=== PATIENT | male | born 1960 | race Caucasian/White ===

== ENCOUNTER 2021-08-18 02:25 | Inpatient (IN) | payer OTHER ==
[2021-08-18] MEDS ORDERED: MORPHINE SULFATE 4 MG/ML SYRINGE IVP PRN (02:37)
[2021-08-18] MEDS ORDERED: NITROGLYCERIN-D5W PMX 50 MG in DEXTROSE/WATER 1 250ML.BAG IV ONE (02:38)
[2021-08-18] MEDS ORDERED: INSULIN ASPART (NovoLOG) 100 UNIT/ML VIAL SQ ONE (02:41)
[2021-08-18 02:42] LABS: Glucose,Whole Blood 331 mg/dL (75-99)
[2021-08-18] MEDS ORDERED: METOPROLOL TARTRATE 5 MG/5 ML VIAL IVP STA (02:51)
[2021-08-18] MEDS ORDERED: FUROSEMIDE 10 MG/ML 4 ML VIAL IV STA (02:51)
[2021-08-18 02:54] LABS: Basophils # (A) 0.2 k/uL (0-0.2); Basophils % (A) 1 %; Eosinophils # (A) 0.2 k/uL (0-0.7); Eosinophils % (A) 1 %; HCT 43.9 % (39.0-53.0); HGB 14.5 gm/dL (13.0-17.5); Hypochromasia Slight; Lymphocytes # (A) 3.4 k/uL (1.0-4.8); Lymphocytes % (A) 16 %; MCH 30.9 pg (25.0-35.0); MCV 93.8 fL (80.0-100.0); Mean Platelet Volume 9.4; Monocytes # (A) 1.2 k/uL (0-1.0); Monocytes % (A) 5 %; Neutrophils # (A) 16.1 k/uL (1.3-7.7); Neutrophils % (A) 74 %; Platelet Count 397 k/uL (150-450); RBC 4.68 m/uL (4.30-5.90); RDW 13.9 % (11.5-15.5); WBC 21.6 k/uL (3.8-10.6)
[2021-08-18] MEDS ORDERED: ATORVASTATIN 80 MG TAB PO STA (02:56)
[2021-08-18 03:05] LABS: Albumin 3.6 g/dL (3.5-5.0); Calcium 8.5 mg/dL (8.4-10.2); Partial Thromboplastin Time 22.7 sec (22.0-30.0); Potassium 4.6 mmol/L (3.5-5.1); Prothrombin Time 10.9 sec (9.0-12.0); Total Bilirubin 1.1 mg/dL (0.2-1.3); Total Protein 7.3 g/dL (6.3-8.2)
[2021-08-18] MEDS ORDERED: HEPARIN SODIUM 1,000 UN/ML (10ML VL) IVP STA (03:07)
[2021-08-18] MEDS ORDERED: IV FLUID CONTINUATION 1,000 ML IV ONE (03:30)
[2021-08-18] MEDS ORDERED: SODIUM CHLORIDE 0.9% 1,000 ML IV ONE (03:30)
[2021-08-18] MEDS ORDERED: LIDOCAINE 1% INJ 10MG/ML (30 ML VIAL-PF) SQ ONE (03:30)
[2021-08-18] MEDS ORDERED: fentaNYL (PF) 50 MCG/ML 2 ML AMP ONE (03:33)
[2021-08-18] MEDS ORDERED: fentaNYL (PF) 50 MCG/ML 2 ML AMP IV ONE (03:36)
--- NOTE | 2021-08-18 03:36 | P.CRDCN ---
History of Present Illness History of present illness: This is Dr. Rider dictating a consult on this patient The patient was interviewed and examined IMPRESSION / ASSESSMENT: Acute pulmonary edema, acute respiratory failure with an onset about an hour or so prior to arrival EKG shows ST elevation in inferior leads with ST depression V1 through V4 consistent with an inferior posterior CO Recurrent heartburn about a week back but no further discomfort thereafter Central obesity, increased BMI is 40 2 diabetes Hypertension PLAN: IV Lasix, IV nitroglycerin, IV metoprolol, aspirin and statins as well as IV morphine Nonrebreather mask Mechanical intubation Proceed with coronary angiography HPI Called by ER for an ST elevation CO" from [place] When I arrived in the ER I saw this gentleman on a nonrebreather mask sitting upright and struggling to breathe He was extremely short of breath very tachycardic hypertensive Initial blood pressure was 180/109 mmHg According to the he woke up and around 1:00 in the morning with sudden onset of shortness of breath no chest discomfort. Tachycardic tachypneic on a nonrebreather mask He has received sublingual nitroglycerin and IV nitroglycerin infusion I gave her 40 mg of IV Lasix and IV metoprolol This resulted in reduction blood pressure and heart rate and he was slowly able to lie down at 45 angle but still struggling to breathe The first 12-lead EKG upon arrival showed ST elevation in the inferior leads with sinus tachycardia After receiving IV Lasix and metoprolol are repeated his ECG and showed ST elevation in inferior leads with ST depression in V1 through V4 consistent with a large inferior posterior CO I discussed this with Dr. Morris also came down to see the patient He was taken to the lab intubated in the lab for intervention According to the patient and his he had recurrent heartburn a week back He saw his primary care physician He was treated with oral steroids He was scheduled for a stress test on August 23 at [facility] Over the last few days and especially yesterday he had absolutely no chest discomfort but he may very short of breath with exertion He experienced sudden onset of shortness of breath and presented with pulmonary edema this morning ROS: Acute onset shortness of breath No fever chills or rigors, no cough, phlegm or expectoration, no nausea, vomiting or diarrhea, no hematuria, dysuria, no musculoskeletal complaints, no strokes or seizures, no skin lesions. EXAMINATION: Blood pressure 186 105 mmHg, heart rate 130 140 beats a minute sinus tachycardia Reduced air entry bilaterally with some crackles at the bases later on once his breathing improved and his heart rate slowed down fine crackles were audible at the bases No obvious cardiac murmur REVIEW OF LABS, ECG & MEDICAL DATA Elevated white count but the patient is on steroids Type 2 diabetes, on metformin History of hypertension Obesity, BMI almost 40, Central obesity He takes metformin losartan but his could not remember any other medications Past Medical History Past Medical History: Diabetes Mellitus, Hyperlipidemia, Hypertension History of Any Multi-Drug Resistant Organisms: None Reported Past Surgical History: No Surgical Hx Reported Past Psychological History: No Psychological Hx Reported Smoking Status: Former smoker Past Alcohol Use History: Occasional Past Drug Use History: None Reported Medications and Allergies Allergies Allergy/AdvReac Type Severity Reaction Status Date / Time No Known Allergies Allergy Verified 08/18/21 02:32 Physical Exam Vitals: Vital Signs Temp Pulse Resp BP Pulse Ox 08/18/21 03:04 109 H 24 114/61 97 08/18/21 02:58 113 H 26 H 121/59 97 08/18/21 02:48 129 H 26 H 140/83 97 08/18/21 02:40 130 H 26 H 161/96 96 08/18/21 02:32 98.3 F 150 H 40 H 186/105 86 L Intake and Output 08/17/21 08/17/21 08/18/21 14:59 22:59 06:59 Other: Weight 131.542 kg Results 08/18/21 02:41 Coagulation 08/18/21 Range/Units 02:41 PT 10.9 (9.0-12.0) sec APTT 22.7 (22.0-30.0) sec CBC 08/18/21 Range/Units 02:41 WBC 21.6 H (3.8-10.6) k/uL RBC 4.68 (4.30-5.90) m/uL Hgb 14.5 (13.0-17.5) gm/dL Hct 43.9 (39.0-53.0) % Plt Count 397 (150-450) k/uL Current Medications Generic Name Dose Route Start Last Admin Trade Name Freq PRN Reason Stop Dose Admin Nitroglycerin/Dextrose 50 mg/ 250 mls @ 6 mls/hr 08/18/21 02:38 08/18/21 02:37 IV Solution IV 08/19/21 02:37 20 mcg/min .Q24H ONE 6 mls/hr Administration Protocol 20 MCG/MIN Morphine Sulfate 4 mg 08/18/21 02:37 08/18/21 02:37 Morphine Sulfate 4 Mg/Ml Syringe IVP 4 mg ONCE PRN Administration Pain Intake and Output 08/17/21 08/17/21 08/18/21 14:59 22:59 06:59 Other: Weight 131.542 kg Patient Weight 08/18/21 06:59 Weight 131.542 kg 08/18/21 02:41
[2021-08-18] MEDS ORDERED: HEPARIN SODIUM 1,000 UN/ML (10ML VL) ONE (03:38)
[2021-08-18] MEDS ORDERED: FUROSEMIDE 10 MG/ML 4 ML VIAL ONE (03:39)
--- NOTE | 2021-08-18 03:39 | XR ---
EXAMINATION TYPE: XR chest 1V portable DATE OF EXAM: 08/18/2021 COMPARISON: NONE HISTORY: Chest pain TECHNIQUE: Single view FINDINGS: There is pulmonary interstitial and airspace edema. There is no pleural effusion. There are no hilar masses. Mediastinum is normal. IMPRESSION: There is pulmonary edema that could relate to acute heart failure or RDS.
[2021-08-18] MEDS ORDERED: TIROFIBAN BOLUS 12.5MG/250 ML BAG IV ONE (03:40)
[2021-08-18] MEDS ORDERED: TIROFIBAN 12.5MG-250ML NS 250 ML IV ONE (03:45)
[2021-08-18] MEDS ORDERED: FUROSEMIDE 10 MG/ML 4 ML VIAL IV ONE (03:45)
[2021-08-18] MEDS ORDERED: NOREPINEPHRINE 4 MG in SODIUM CHLORIDE 0.9% 250 ML IV ONE (03:45)
[2021-08-18] MEDS ORDERED: IOPAMIDOL-370 125ML BTL INJ ONE (03:53)
[2021-08-18] MEDS: HEPARIN SODIUM 1,000 UN/ML (10ML VL) IV ONE ×3 (03:57→05:11)
[2021-08-18] MEDS ORDERED: HEPARIN SODIUM 1,000 UN/ML (10ML VL) IV ONE (04:51)
[2021-08-18 04:57] LABS: ABG Base Excess -4.2 mmol/L; ABG HCO3 24 mmol/L (21-25); ABG Oxygen Saturation 94.5 % (94-97); ABG PCO2 58 mmHg (35-45); ABG PH 7.22 (7.35-7.45); ABG PO2 90 mmHg (83-108); ABG TCO2 25 mmol/L (19-24)
[2021-08-18] MEDS ORDERED: TICAGRELOR 90 MG TAB ONE (05:20)
[2021-08-18] MEDS ORDERED: TICAGRELOR 90 MG TAB PO ONE (05:29)
[2021-08-18 05:31] LABS: Allen Test Performed? no
[2021-08-18] MEDS ORDERED: NITROGLYCERIN SL TABS 0.4 MG TAB SUBLINGUAL PRN (05:41)
[2021-08-18] MEDS ORDERED: MAG HYDROX/AL HYDROX/SIMETH 30 ML CUP PO PRN (05:41)
[2021-08-18] MEDS ORDERED: ZOLPIDEM 5 MG TAB PO PRN (05:41)
[2021-08-18] MEDS ORDERED: ATROPINE SULFATE 0.1 MG/ML 10ML SYRINGE IV PRN (05:41)
[2021-08-18] MEDS ORDERED: RX INFO: IV CONTRAST WAS GIVEN 1 EACH MISC MISCELLANE PRN (05:41)
[2021-08-18] MEDS ORDERED: IOPAMIDOL-370 100ML BTL INJ ONE (05:43)
[2021-08-18] MEDS ORDERED: SODIUM CHLORIDE 0.9% 1,000 ML in EMPTY BAG 1 BAG IV SCH (05:45)
--- NOTE | 2021-08-18 06:06 | P.PCN ---
Date of Procedure: 08/18/21 Operative Findings: CARDIAC CATHETERIZATION AND PERCUTANEOUS CORONARY INTERVENTION PERFORMING PHYSICIAN: Khalif Moncada MD, [facility] [place] PROCEDURE PERFORMED: 1. Successful placement of an Impella CP in the left ventricle 2. Stenting of the mid LAD using 3.0 x 23 mm Xience MATT and achieving SUSIE-3 flow 3. Stenting of OM1 of the LCx using 2.5 x 28 and 3.5 x 15 mm Xience MATT with SUSIE 0 flow 4. Aspiration thrombectomy from the OM1/LCX 5. Selective right and left coronary angiogram 6. Left heart catheterization 7. Selective left common femoral artery INDICATION: This is a 60-year-old gentleman with obesity diabetes and hypertension and dyslipidemia presented to the emergency department with shortness of breath/chest discomfort and EKG concerning for acute inferior ST patient myocardial infarction. In the light of that an emergent heart catheterization was advised COMPLICATION: None APPROACH: Right common femoral artery LEVEL OF SEDATION: Moderate with sedation length of 120 minutes PROCEDURE DESCRIPTION: After obtaining an informed consent, the patient was brought to cardiac dental laboratory manager. Local anesthesia was performed using lidocaine subcutaneously. The right common femoral artery was cannulated using Seldinger technique, the guidewire passed easily, following that we advanced a 6 Luxembourger sheath dilator assembly, the wire and dilator were removed and sheath was flushed. Selective right and left coronary angiogram using a 6-Luxembourger JR4 and JL catheters. Following that we did left heart catheterization using 6-Luxembourger pigtail catheter. The procedure was completed there was no complication. SELECTIVE CORONARY ANGIOGRAM: The right coronary artery: Is a large caliber vessel and a dominant vessel. The RCA has mild diffuse disease. Bifurcates distally into PDA and PLV branches and both appeared to have mild disease only. Left main: Is angiographically normal. Bifurcates into a CXR and LAD The left circumflex: Is a large caliber vessel nondominant vessel. The proximal left circumflex has mild disease only and gives rises into a large OM branch which is occluded. The circumflex continue after that as a moderate caliber vessel in the AV groove The left anterior descending artery: The very proximal LAD appeared to have mild disease only. The mid LAD by the bifurcation of a large diagonal branch has his a lesion appeared to be in the range of 70-80%. The ostial of the diagonal is not involved in the lesion. The LAD distally appears to have mild disease only. HEMODYNAMICS: The LVEDP was almost 40 mmHg without significant gradient across aortic valve PCI OF THE LCX AND LAD: Anticoagulation was initiated using heparin and ACT was monitored multiple times throughout the case. Extra doses of heparin given to achieve a therapeutic ACT I did engage the left main using an EBU 3.75 guiding catheter. An angiogram was performed through the guide. Attempting crossing the lesion in the first obtuse marginal branch of the left circumflex using a run-through wire was unsuccessful in spite of multiple attempts. At that point I left the a run-through wire in the OM1 and I was able to cross the lesion was difficulty using a whisper wire. The wire was advanced to the distal OM. Subsequently I did balloon angioplasty of OM1 using initially 3.0 mm balloon but because the balloon was sleeping multiple times proximally and distally I did balloon angioplasty using 2.5 mm balloon. The following angiogram showed some flow in the first obtuse marginal branch of the left circumflex but not SUSIE-3 flow. At that point I realized that OM1 has large thrombus burden. I did aspiration thrombectomy from OM1 and I was able to extract any thrombus but at the same time the aspiration t hrombectomy catheter did not cross the lesion in the OM1. Subsequently I decided to stent the OM1 and LCx. In OM1 I placed 2.5 x 28 mm stent and in the LCx I placed 3.5 x 15 mm stent. After that the area of overlap between the 2 stents was dilated using the stent balloon. Subsequently the following angiogram showed no flow in the left circumflex coronary artery. Aspiration thrombectomy was attempted again at that point with no extraction of any thrombus and the following angiogram showed no flow in the first obtuse marginal branch of the left circumflex and beside that the AV groove circumflex was shutdown probably because of distal embolization. At that point the patient's pressure dropped down and during the last angiogram I realized that there was no flow in the LAD. Further investigation and angiogram of the LAD revealed large thrombus burden involving the mid LAD by the bifurcation of a large diagonal branch. In the light of the pressure being low and we'll also flow in the LAD I decided to go ahead and place an Impella. At that point the left common femoral artery was cannulated using micropuncture technique the micropuncture wire passed easily then I placed a micropuncture sheath over the wire and I did selective left common femoral artery angiogram through the micropuncture sheath and that showed that the segment of the left common femoral artery where the entry site in appeared to be angiographically normal. Subsequently I placed an 0[address] I [address] place 6-Luxembourger sheath over the wire. Two Perclose where deployed at 2:00 and 11:00 o'clock. After that I upgraded my sheath into a 14-Luxembourger sheath over 035 stiff wire after I predilated using an 10-Luxembourger dilator and 12-Luxembourger dilator. The 14-Luxembourger sheath was advanced under fluoroscopy guidance and went to very small with. After that I did advance an 035 regular wire with a 5- Luxembourger pigtail catheter. I crossed the aortic valve and then I did exchange an 035 wire into a 018 wire and that the catheter was pulled out. Subsequently the Impella was advanced over the 018 wire to the LV under fluoroscopy guidance and then the wire was pulled out and then the Impella was turned on. We did perform an ACT and the patient was given additional heparin to maintain a therapeutic ACT. After that I did re-engaged the left main with a EBU guiding catheter. The wire in the left circumflex was in position. Subsequently I did wire the LAD using a run-through wire and the LAD wire was advanced to the distal portion. I did direct stenting of the lesion in the LAD using 3.0 x 23 mm stent where the stent was positioned under fluoroscopy guidance and deployed under 12 aramis. I did postdilated the stent using 3.25 mm NC balloon which was inflated under 14 aramis for 20 seconds. The following angiogram showed good flow in the left anterior descending artery which was SUSIE-3 flow. There was a thrombus in the ostial of the diagonal but the flow into diagonal was good. After that I decided to do aspiration thrombectomy again from the left circumflex coronary artery which I performed and I was able to extract large red thrombus. No good flow was achieved in the LCx/OM. At that point I decided to leave the patient on heparin as well as Aggrastat and reevaluate in the next 24 hour period I do believe that the major issue is an outflow issue. CONCLUSION: 1. Acute inferior posterior myocardial infarction. Stenting of the OM1/LCx was performed with SUSIE 0 flow 2. Acute vessel closure of the left anterior descending artery. Stenting of the LAD was performed with SUSIE 3 flow 3. Cardiogenic shock. Successful placement of Impella in the LV was performed 4. Extremely elevated left-sided filling pressure related to cardiogenic shock POSTPROCEDURE MANAGEMENT: The patient to be reevaluated with an angiogram in the next 24 hour period he would be in the intensive care unit. He would be on heparin as well as Ag grastat. Aviation Safety Equipment Technician would be consulted. Continue hemodynamic monitoring
[2021-08-18 06:35] LABS: Glucose,Whole Blood 230 mg/dL (75-99)
[2021-08-18] MEDS ORDERED: HEPARIN SOD,PORK IN 0.45% NACL 25,000 UNIT in 0.45% NACL 1 250ML.BAG IV SCH (07:30)
--- NOTE | 2021-08-18 08:26 | XR ---
EXAMINATION TYPE: XR chest 1V portable DATE OF EXAM: 08/18/2021 8:13 AM COMPARISON: Multiple radiographs, with the most recent on 08/18/2021 TECHNIQUE: XR chest 1V portable Frontal view of the chest. CLINICAL INDICATION:Male, 60 years old with history of RESP FAILURE; FINDINGS: Underpenetration and motion limits evaluation. Lungs/Pleura: Similar multifocal airspace opacities. No evidence of pneumothorax or pleural effusion. Pulmonary vascularity: Unremarkable. Heart/mediastinum: Cardiomediastinal silhouette is enlarged and stable. Musculoskeletal: No acute osseous pathology. Other findings: None Lines/Tubes: Endotracheal tube with distal tip 5.1 cm above the eloy Additional linear device with distal tip projecting over the heart after looping more superiorly. Its difficult to see this less given motion and underpenetration. IMPRESSION: 1. Limited evaluation secondary to motion and underpenetration. 2. Interval placement of endotracheal tube with tip above the eloy. 3. Similar multifocal airspace opacities.
[2021-08-18 08:37] LABS: ABG Base Excess -5.7 mmol/L; ABG HCO3 20 mmol/L (21-25); ABG Oxygen Saturation 99.7 % (94-97); ABG PCO2 39 mmHg (35-45); ABG PH 7.33 (7.35-7.45); ABG PO2 373 mmHg (83-108); ABG TCO2 21 mmol/L (19-24)
[2021-08-18 08:58] LABS: Glucose,Whole Blood 236 mg/dL (75-99)
[2021-08-18] MEDS: NOREPINEPHRINE 4 MG in SODIUM CHLORIDE 0.9% 250 ML IV SCH ×8 (09:18→23:57)
[2021-08-18] MEDS ORDERED: CISATRACURIUM 2 MG/ML 5 ML VIAL IV ONE ×2 (09:34→09:46)
[2021-08-18] MEDS: TIROFIBAN 12.5MG-250ML NS 250 ML IV SCH ×2 (09:50→18:58)
[2021-08-18] MEDS: ASPIRIN 81 MG PO SCH (09:50)
[2021-08-18] MEDS: CHLORHEXIDINE GLUCONATE 15 ML CUP MUCOUS MEM SCH ×2 (09:50→20:26)
--- NOTE | 2021-08-18 10:25 | XR ---
EXAMINATION TYPE: XR chest 1V portable DATE OF EXAM: 08/18/2021 10:05 AM COMPARISON: Same day radiograph TECHNIQUE: XR chest 1V portable Frontal view of the chest. 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 No evidence of pneumothorax or pleural effusion. Pulmonary vascularity: Pulmonary vascular congestion. Heart/mediastinum: Cardiomediastinal silhouette is enlarged and stable. Musculoskeletal: No acute osseous pathology. Lines/Tubes: Endotracheal tube with distal tip at the thoracic inlet. Nasogastric tube with its distal tip and side-port projecting under the diaphragm. Left central venous catheter with distal tip at the superior vena cava brachiocephalic vein junction. Additional heart leads projecting over the right ventricle and middle heart near the pulmonary trunk/ right atrium. IMPRESSION: 1. Interval placement of left internal jugular central venous catheter with tip in appropriate posit ion. No evidence of pneumothorax. 2. Remainder of exam is unchanged with multifocal airspace opacities.
[2021-08-18] MEDS: HEPARIN SOD,PORK IN 0.45% NACL 25,000 UNIT in 0.45% NACL 1 250ML.BAG IV SCH (11:00)
[2021-08-18] MEDS: HEPARIN SODIUM,PORCINE 12,500 UNIT in DEXTROSE 5% IN WATER 500 ML IV SCH ×2 (11:00)
--- NOTE | 2021-08-18 11:01 | PCN ---
PROCEDURE NOTE PULMONARY/CRITICAL CARE PROCEDURE NOTE: Placement of left internal jugular triple-lumen catheter. PREOPERATIVE DIAGNOSIS: Administration of fluids and pressors. POSTOPERATIVE DIAGNOSIS: Administration of fluids and pressors. OPERATORS: 1. Dr. Szymanski. 2. Dr. Shaikh. PROCEDURE DESCRIPTION: A time-out was completed verifying correct patient, procedure, site, positioning, and implant(s) or special equipment if applicable. The patient was placed in a dependent position appropriate for triple-lumen catheter placement based on the vein to be cannulated. The patient's left neck was prepped and draped in sterile fashion. 1% Lidocaine was used to anesthetize the surrounding skin area. A triple lumen 9F Cordis catheter was introduced into the left internal jugular vein from the posterior approach using Seldinger technique. The catheter was threaded smoothly over the guidewire and appropriate blood return was obtained. There was good blood return from all three ports. Each lumen of the catheter was evacuated of air and flushed with sterile saline. The catheter was then sutured in place to the skin and a sterile dressing applied by the nurse. Perfusion to the extremity distal to the point of catheter insertion was checked and found to be adequate. A chest x-ray was ordered to check placement and rule out pneumothorax. The patient the tolerated procedure very well. There was no immediate complication. MMODL / IJN: [id number] /
--- NOTE | 2021-08-18 11:07 | P.HPIM ---
History of Present Illness H&P Date: 08/18/21 Chief Complaint: STEMI 60-year-old man with history of hypertension, obesity, diabetes type 2, hyperlipidemia presented as a transfer from [place] for STEMI. Patient was int ubated and sedated at the time of my evaluation, history obtained from chart review. Patient appeared to have inferior ST elevations and 2, 3, aVF, as well as lateral leads, V5, V6 with reciprocal changes in the lateral leads 1, aVL, as well as septal leads V1, V2, anterior leads V3. Chest x-ray demonstrated multifocal airspace opacities consistent with volume overload. By the time my evaluation, patient had been taken to the [facility] with Impala placement as well as stenting to the OM1 with 2 stents, and LAD with 1 stent. Upon my evaluation, patient is afebrile, 100/73 with 0.1 of levo fed and 3 L output Impala running at power 9. Heart rate is 60, 95% on ventilator FiO2 40%, before meals 500, PEEP 5. CBC significant for white blood cell count 21.6, otherwise unremarkable. Chemistries remarkable for mild hyponatremia to 133, mild acidosis to CO2 of 19, BUN/creatinine is 16/1.24. Liver function tests are significant for AST/ALT/alkaline phosphatase of 71/51/132. Initial troponin was 5.44, BNP was 1150. ABG status post ventilator shows a pH of 7.33, pO2 of 373, pCO2 of 39. Chest x-ray and EKG are reviewed above. Review of systems could not be obtained due to patient's clinical condition Gen: Intubated, sedated HEENT: normocephalic, atraumatic,moist mucous membranes Resp: Intubated, vent before meals 500, FiO2 40%, PEEP 5 CVS: good distal perfusion x 4, tachycardic GI: soft, NTTP, ND : no SPT, no CVAT, hu catheter is present MSK: + pitting edema, no clubbing Labs and imaging are reviewed above Assessment/plan: STEMI -Admit to inpatient, ICU, telemetry -Aspirin, brillinta, statin -Currently on Aggrastat -Impala per cardiology -Levo fed as needed -Cardiology, pulmonary consultation appreciated -Nitro drip as needed -Morphine as needed Hypertension Hyperlipidemia Diabetes type 2 Obesity -Home medications reviewed and reconciled Pt is Full Code Past Medical History Past Medical History: Diabetes Mellitus, Hyperlipidemia, Hypertension History of Any Multi-Drug Resistant Organisms: None Reported Past Surgical History: No Surgical Hx Reported Past Psychological History: No Psychological Hx Reported Smoking Status: Former smoker Past Alcohol Use History: Occasional Past Drug Use History: None Reported Medications and Allergies Allergies Allergy/AdvReac Type Severity Reaction Status Date / Time No Known Allergies Allergy Verified 08/18/21 02:32 Physical Exam Osteopathic Statement: *. No significant issues noted on an osteopathic structural exam other than those noted in the History and Physical/Consult. Vitals: Vital Signs Temp Pulse Resp BP Pulse Ox 08/18/21 09:45 60 0 L 100/73 95 08/18/21 09:30 55 L 0 L 114/80 96 08/18/21 09:15 61 0 L 120/84 97 08/18/21 09:00 63 0 L 113/65 97 08/18/21 08:45 62 111/89 98 08/18/21 08:30 62 22 104/81 97 08/18/21 08:15 63 22 99/77 97 08/18/21 08:00 98.5 F 63 22 103/84 97 08/18/21 07:45 62 20 100/88 97 08/18/21 07:30 63 23 102/73 97 08/18/21 07:15 64 22 89/74 96 08/18/21 07:00 64 26 H 114/84 97 08/18/21 06:45 62 24 100/55 96 08/18/21 06:31 64 24 98 08/18/21 03:09 116 H 18 121/61 98 08/18/21 03:04 109 H 24 114/61 97 08/18/21 02:58 113 H 26 H 121/59 97 08/18/21 02:50 42 H 08/18/21 02:48 129 H 26 H 140/83 97 08/18/21 02:40 130 H 26 H 161/96 96 08/18/21 02:32 98.3 F 150 H 40 H 186/105 86 L Intake and Output 08/17/21 08/18/21 08/18/21 22:59 06:59 14:59 Intake Total 1053.9 Balance 1053.9 Intake: IV 1030 Intake, IV Titration 23.9 Amount Nitroglycerin-D5w Pmx 50 23.9 mg In Dextrose/Water 1 250ml.bag @ 20 MCG/MIN 6 mls/hr IV .Q24H ONE Rx#: [id number] Other: Voiding Method Indwelling Catheter Weight 131.542 kg ABP, PAP, CO, CI - Last 8 Hours Arterial Blood Pressure 125/84 Arterial Blood Pressure 64/56 Arterial Blood Pressure 121/85 Arterial Blood Pressure 127/92 Arterial Blood Pressure 124/86 Arterial Blood Pressure 118/90 Arterial Blood Pressure 112/86 Arterial Blood Pressure 104/79 Arterial Blood Pressure 101/81 Arterial Blood Pressure 103/82 Arterial Blood Pressure 108/85 Arterial Blood Pressure 106/80 Arterial Blood Pressure 66/57 Results CBC & Chem 7: 08/18/21 02:41 08/18/21 02:41 Labs: Abnormal Lab Results - Last 24 Hours (Table) 08/18/21 08/18/21 08/18/21 Range/Units 02:40 02:41 02:41 WBC 21.6 H (3.8-10.6) k/uL Neutrophils # 16.1 H (1.3-7.7) k/uL Monocytes # 1.2 H (0-1.0) k/uL ABG pH (7.35-7.45) ABG pCO2 (35-45) mmHg ABG pO2 (83-108) mmHg ABG HCO3 (21-25) mmol/L ABG Total CO2 (19-24) mmol/L ABG O2 Saturation (94-97) % Sodium 133 L (137-145) mmol/L Carbon Dioxide 19 L (22-30) mmol/L Glucose 334 H (74-99) mg/dL POC Glucose (mg/dL) 331 H (75-99) mg/dL AST 71 H (17-59) U/L ALT 51 H (4-49) U/L Alkaline Phosphatase 132 H (38-126) U/L Troponin I (0.000-0.034) ng/mL 08/18/21 08/18/21 08/18/21 Range/Units 02:41 04:48 06:33 WBC (3.8-10.6) k/uL Neutrophils # (1.3-7.7) k/uL Monocytes # (0-1.0) k/uL ABG pH 7.22 L (7.35-7.45) ABG pCO2 58 H (35-45) mmHg ABG pO2 (83-108) mmHg ABG HCO3 (21-25) mmol/L ABG Total CO2 25 H (19-24) mmol/L ABG O2 Saturation (94-97) % Sodium (137-145) mmol/L Carbon Dioxide (22-30) mmol/L Glucose (74-99) mg/dL POC Glucose (mg/dL) 230 H (75-99) mg/dL AST (17-59) U/L ALT (4-49) U/L Alkaline Phosphatase (38-126) U/L Troponin I 5.440 H* (0.000-0.034) ng/mL 08/18/21 08/18/21 Range/Units 08:31 08:37 WBC (3.8-10.6) k/uL Neutrophils # (1.3-7.7) k/uL Monocytes # (0-1.0) k/uL ABG pH 7.33 L (7.35-7.45) ABG pCO2 (35-45) mmHg ABG pO2 373 H (83-108) mmHg ABG HCO3 20 L (21-25) mmol/L ABG Total CO2 (19-24) mmol/L ABG O2 Saturation 99.7 H (94-97) % Sodium (137-145) mmol/L Carbon Dioxide (22-30) mmol/L Glucose (74-99) mg/dL POC Glucose (mg/dL) 236 H (75-99) mg/dL AST (17-59) U/L ALT (4-49) U/L Alkaline Phosphatase (38-126) U/L Troponin I (0.000-0.034) ng/mL Thrombosis Risk Factor Assmnt - Choose All That Apply Each Factor Represents 1 point: Acute [place] Each Risk Factor Represents 2 Points: Age 61-74 years, Patient confined to bed Thrombosis Risk Factor Assessment Total Risk Factor Score: 5 Thrombosis Risk Factor Assessment Level: High Risk
[2021-08-18 11:11] LABS: Basophils # (A) 0.1 k/uL (0-0.2); Basophils % (A) 0 %; Eosinophils % (A) 0 %; HCT 42.9 % (39.0-53.0); HGB 14.3 gm/dL (13.0-17.5); Lymphocytes # (A) 1.2 k/uL (1.0-4.8); Lymphocytes % (A) 4 %; MCH 30.7 pg (25.0-35.0); MCHC 33.5 g/dL (31.0-37.0); MCV 91.7 fL (80.0-100.0); Mean Platelet Volume 8.8; Monocytes # (A) 0.9 k/uL (0-1.0); Monocytes % (A) 3 %; Neutrophils # (A) 25.1 k/uL (1.3-7.7); Neutrophils % (A) 91 %; Platelet Count 376 k/uL (150-450); RBC 4.68 m/uL (4.30-5.90); WBC 27.5 k/uL (3.8-10.6)
[2021-08-18 11:49] LABS: ALT 73 U/L (4-49); AST 211 U/L (17-59); African American GFR (CKD) 75 (>60 ml/min/1.73 sqM); Albumin 3.4 g/dL (3.5-5.0); Alkaline Phosphatase 84 U/L (38-126); Anion Gap 8 mmol/L; Blood Urea Nitrogen 20 mg/dL (9-20); Calcium 7.7 mg/dL (8.4-10.2); Carbon Dioxide 19 mmol/L (22-30); Chloride 108 mmol/L (98-107); Glucose 210 mg/dL (74-99); Magnesium 1.8 mg/dL (1.6-2.3); Non-African American GFR(CKD) 64 (>60 ml/min/1.73 sqM); Sodium 135 mmol/L (137-145); Total Bilirubin 2.5 mg/dL (0.2-1.3); Total Protein 7.4 g/dL (6.3-8.2)
[2021-08-18 12:02] LABS: Potassium 5.4 mmol/L (3.5-5.1)
[2021-08-18 12:11] LABS: Toxic Granulation Present
[2021-08-18] MEDS: FUROSEMIDE 10 MG/ML 4 ML VIAL IV SCH ×2 (12:17→20:26)
--- NOTE | 2021-08-18 12:21 | P.PN ---
Subjective Progress Note Date: 08/18/21 This is Francis Rasmussen NP, I'm dictating on behalf of Dr. Rider's H&P and A&P. Patient was interviewed and examined. Patient is a 60-year-old male who was brought to the hospital yesterday with a STEMI. Patient underwent cardiac catheterization, where stenting was completed to the mid LAD, OM1, aspiration thrombectomy from the OM1/LCx, successful placement of an Impella CP in the left ventricle. Patient was intubated prior to the procedure, remains intubated at this time. Patient remains on heparin, nitro, norepinephrine, propofol, and tirofiban. Secondary to cardiogenic shock and extremely elevated left-sided filling pressures, will start patient on Lasix 40 mg IV push twice a day. GENERAL: Intubated, sedated. NECK: Supple without JVD or thyromegaly. LUNGS: Breath sounds clear to auscultation bilaterally. Respiration equal and unlabored. No wheezes, rales or rhonchi. HEART: Regular rate and rhythm without murmurs, rubs or gallops. S1 and S2 heard. EXTREMITIES: No edema. No clubbing or cyanosis. Peripheral pulses intact and strong. VITALS: Temp 98.5, pulse 63, respirations 22, blood pressure 103/84, O2 saturation 97% on mechanical ventilation TELEMETRY: Normal sinus rhythm LABS: White count 27.5, hemoglobin 14.3, platelets 376, sodium 135, potassium 5.4, B1 20, creatinine 1.21, calcium 7.7, magnesium 1.8 IMPRESSION: Status post cardiac catheterization with stenting to mid LAD, OM1, LCx, with successful placement of Impella Inferior/posterior HI, status post cath Anterior HI, status post cath PLAN: Continue IV Lasix 40 mg twice a day Continue to evaluate left ventricular status May need further catheterization in the near future for further stenting or aspiration thrombectomy Prognosis is guarded Further recommendations based on patient's clinical course Objective - Vital Signs Vital signs: Vital Signs Temp 98.5 F 08/18/21 08:00 Pulse 60 08/18/21 11:00 Resp 22 08/18/21 11:00 BP 108/90 08/18/21 11:00 Pulse Ox 97 08/18/21 11:00 Intake & Output 08/17/21 08/18/21 08/18/21 18:59 06:59 18:59 Intake Total 1053.9 375 Output Total 375 Balance 1053.9 0 Weight 131.542 kg Intake: IV 1030 375 Sodium Chloride 0.9% 1, 375 000 ml In Empty Bag 1 bag @ 75 mls/hr IV .[id number] [facility] Rx#:[id number] Intake, IV Titration 23.9 Amount Nitroglycerin-D5w Pmx 50 23.9 mg In Dextrose/Water 1 250ml.bag @ 20 MCG/MIN 6 mls/hr IV .Q24H [facility] Rx#: [id number] Output: Urine 375 Other: Voiding Method Indwelling Catheter ABP, PAP, CO, CI - Last Documented Arterial Blood Pressure 104/77 - Labs CBC & Chem 7: 08/18/21 11:07 08/18/21 11:37 Labs: Abnormal Lab Results - Last 24 Hours (Table) 08/18/21 08/18/21 08/18/21 Range/Units 02:40 02:41 02:41 WBC 21.6 H (3.8-10.6) k/uL Neutrophils # 16.1 H (1.3-7.7) k/uL Monocytes # 1.2 H (0-1.0) k/uL Fibrinogen (200-500) mg/dL ABG pH (7.35-7.45) ABG pCO2 (35-45) mmHg ABG pO2 (83-108) mmHg ABG HCO3 (21-25) mmol/L ABG Total CO2 (19-24) mmol/L ABG O2 Saturation (94-97) % Sodium 133 L (137-145) mmol/L Potassium (3.5-5.1) mmol/L Chloride (98-107) mmol/L Carbon Dioxide 19 L (22-30) mmol/L Glucose 334 H (74-99) mg/dL POC Glucose (mg/dL) 331 H (75-99) mg/dL Calcium (8.4-10.2) mg/dL Total Bilirubin (0.2-1.3) mg/dL AST 71 H (17-59) U/L ALT 51 H (4-49) U/L Alkaline Phosphatase 132 H (38-126) U/L Troponin I (0.000-0.034) ng/mL Albumin (3.5-5.0) g/dL 08/18/21 08/18/21 08/18/21 Range/Units 02:41 04:48 06:33 WBC (3.8-10.6) k/uL Neutrophils # (1.3-7.7) k/uL Monocytes # (0-1.0) k/uL Fibrinogen (200-500) mg/dL ABG pH 7.22 L (7.35-7.45) ABG pCO2 58 H (35-45) mmHg ABG pO2 (83-108) mmHg ABG HCO3 (21-25) mmol/L ABG Total CO2 25 H (19-24) mmol/L ABG O2 Saturation (94-97) % Sodium (137-145) mmol/L Potassium (3.5-5.1) mmol/L Chloride (98-107) mmol/L Carbon Dioxide (22-30) mmol/L Glucose (74-99) mg/dL POC Glucose (mg/dL) 230 H (75-99) mg/dL Calcium (8.4-10.2) mg/dL Total Bilirubin (0.2-1.3) mg/dL AST (17-59) U/L ALT (4-49) U/L Alkaline Phosphatase (38-126) U/L Troponin I 5.440 H* (0.000-0.034) ng/mL Albumin (3.5-5.0) g/dL 08/18/21 08/18/21 08/18/21 Range/Units 08:31 08:37 11:07 WBC 27.5 H (3.8-10.6) k/uL Neutrophils # (1.3-7.7) k/uL Monocytes # (0-1.0) k/uL Fibrinogen (200-500) mg/dL ABG pH 7.33 L (7.35-7.45) ABG pCO2 (35-45) mmHg ABG pO2 373 H (83-108) mmHg ABG HCO3 20 L (21-25) mmol/L ABG Total CO2 (19-24) mmol/L ABG O2 Saturation 99.7 H (94-97) % Sodium (137-145) mmol/L Potassium (3.5-5.1) mmol/L Chloride (98-107) mmol/L Carbon Dioxide (22-30) mmol/L Glucose (74-99) mg/dL POC Glucose (mg/dL) 236 H (75-99) mg/dL Calcium (8.4-10.2) mg/dL Total Bilirubin (0.2-1.3) mg/dL AST (17-59) U/L ALT (4-49) U/L Alkaline Phosphatase (38-126) U/L Troponin I (0.000-0.034) ng/mL Albumin (3.5-5.0) g/dL 08/18/21 08/18/21 Range/Units 11:07 11:37 WBC (3.8-10.6) k/uL Neutrophils # (1.3-7.7) k/uL Monocytes # (0-1.0) k/uL Fibrinogen 532 H (200-500) mg/dL ABG pH (7.35-7.45) ABG pCO2 (35-45) mmHg ABG pO2 (83-108) mmHg ABG HCO3 (21-25) mmol/L ABG Total CO2 (19-24) mmol/L ABG O2 Saturation (94-97) % Sodium 135 L (137-145) mmol/L Potassium 5.4 H (3.5-5.1) mmol/L Chloride 108 H (98-107) mmol/L Carbon Dioxide 19 L (22-30) mmol/L Glucose 210 H (74-99) mg/dL POC Glucose (mg/dL) (75-99) mg/dL Calcium 7.7 L (8.4-10.2) mg/dL Total Bilirubin 2.5 H (0.2-1.3) mg/dL AST 211 H (17-59) U/L ALT 73 H (4-49) U/L Alkaline Phosphatase (38-126) U/L Troponin I (0.000-0.034) ng/mL Albumin 3.4 L (3.5-5.0) g/dL
[2021-08-18] MEDS: INSULIN ASPART (NovoLOG) 100 UNIT/ML VIAL SQ SCH ×2 (12:31→17:36)
--- NOTE | 2021-08-18 12:40 | P.CNPUL ---
History of Present Illness Consult date: 08/18/21 Requesting physician: Lamont Kelley Reason for consult: other (Mechanical ventilator/Critical care management) Chief complaint: ST segment elevation myocardial infarction History of present illness: This is a 60-year-old male patient with a history of diabetes mellitus, hyperlipidemia, hypertension, obesity, possible medication noncompliance was brought in to the emergency room via EMS for an acute ST segment elevation myocardial infarction, acute pulmonary edema with acute respiratory failure. Apparently he had been having complaints of recurrent heartburn for 1 week prior, seen his primary care provider was treated with oral medications and scheduled for a stress test August 23. He was intubated in the emergency room for acute hypoxemic respiratory failure. He was taken urgently to the cardiac slab polisher and had stents placed to the mid LAD, OM 12, aspiration thrombectomy of the OM1. Impella was placed. He was admitted to the intensive care unit where he is seen today in consultation. He remains intubated on the mechanical ventilator. Currently on assist control mode with a rate of 22, tidal volume 500, FiO2 60% and a PEEP of 5. Morning blood gases revealed a PaO2 of 373, P CO2 of 38 and a pH of 7.33. This was on 90% FiO2 and subsequently decreased to 40% FiO2. He is sedated on propofol at 45 mcg/kg/m. Heparin drip per weight- based protocol. Aggrastat at 0.15 mcg/kg/m. He is on norepinephrine at 12 mcg/m. Normal saline at 75 ML's per hour. White count 27.5. Hemoglobin 14.3. Platelets 373. Fibrinogen 532. Sodium 135. Potassium 5.4. Chloride 108. Bicarb 19. BUN 20. Creatinine 1.21. Glucose 210. TSH 0.601. Cortisol level XXII. A ST to 11. ALT 73. Troponin 5.44. ProBNP 1150. He's been initiated on Lasix 40 mg IV every 12 hours. Brilinta, aspirin, statins. Chest x-ray reveals multifocal airspace opacities, pulmonary vascular congestion. Echocardiogram pending. Review of Systems ROS unobtainable: due to endotracheal tube Past Medical History Past Medical History: Diabetes Mellitus, Hyperlipidemia, Hypertension History of Any Multi-Drug Resistant Organisms: None Reported Past Surgical History: No Surgical Hx Reported Past Psychological History: No Psychological Hx Reported Smoking Status: Former smoker Past Alcohol Use History: Occasional Past Drug Use History: None Reported Medications and Allergies Allergies Allergy/AdvReac Type Severity Reaction Status Date / Time No Known Allergies Allergy Verified 08/18/21 02:32 Physical Exam Vitals: Vital Signs Temp Pulse Resp BP Pulse Ox 08/18/21 12:15 57 L 22 122/90 98 08/18/21 12:00 57 L 22 120/105 98 08/18/21 11:45 58 L 22 120/105 98 08/18/21 11:30 58 L 22 118/94 98 08/18/21 11:15 60 22 122/91 98 08/18/21 11:00 60 22 108/90 97 08/18/21 10:45 58 L 22 113/96 97 08/18/21 10:30 59 L 22 117/97 97 08/18/21 10:15 58 L 22 116/95 97 08/18/21 10:00 59 L 22 108/91 97 08/18/21 09:45 60 22 100/73 95 08/18/21 09:30 55 L 22 114/80 96 08/18/21 09:15 61 22 120/84 97 08/18/21 09:00 63 22 113/65 97 08/18/21 08:45 62 22 111/89 98 08/18/21 08:30 62 22 104/81 97 08/18/21 08:15 63 22 99/77 97 08/18/21 08:00 98.5 F 63 22 103/84 97 08/18/21 07:45 62 20 100/88 97 08/18/21 07:30 63 23 102/73 97 08/18/21 07:15 64 22 89/74 96 08/18/21 07:00 64 26 H 114/84 97 08/18/21 06:45 62 24 100/55 96 08/18/21 06:31 64 24 98 08/18/21 03:09 116 H 18 121/61 98 08/18/21 03:04 109 H 24 114/61 97 08/18/21 02:58 113 H 26 H 121/59 97 08/18/21 02:50 42 H 08/18/21 02:48 129 H 26 H 140/83 97 08/18/21 02:40 130 H 26 H 161/96 96 08/18/21 02:32 98.3 F 150 H 40 H 186/105 86 L Intake and Output 08/17/21 08/18/21 08/18/21 22:59 06:59 14:59 Intake Total 1053.9 500.295 Output Total 375 Balance 1053.9 125.295 Intake: IV 1030 375 Sodium Chloride 0.9% 1, 375 000 ml In Empty Bag 1 bag @ 75 mls/hr IV .[id number] [facility] Rx#:[id number] Intake, IV Titration 23.9 125.295 Amount Nitroglycerin-D5w Pmx 50 23.9 mg In Dextrose/Water 1 250ml.bag @ 20 MCG/MIN 6 mls/hr IV .Q24H [facility] Rx#: [id number] Norepinephrine 4 mg In 125.295 Sodium Chloride 0.9% 250 ml @ 0.24 MCG/KG/MIN 120. 282 mls/hr IV .Q2H7M [facility] Rx#:[id number] Output: Urine 375 Other: Voiding Method Indwelling Catheter Weight 131.542 kg ABP, PAP, CO, CI - Last 8 Hours Arterial Blood Pressure 112/79 Arterial Blood Pressure 113/78 Arterial Blood Pressure 117/79 Arterial Blood Pressure 120/79 Arterial Blood Pressure 117/79 Arterial Blood Pressure 104/77 Arterial Blood Pressure 109/74 Arterial Blood Pressure 112/74 Arterial Blood Pressure 113/77 Arterial Blood Pressure 102/76 Arterial Blood Pressure 125/84 Arterial Blood Pressure 64/56 Arterial Blood Pressure 121/85 Arterial Blood Pressure 127/92 Arterial Blood Pressure 124/86 Arterial Blood Pressure 118/90 Arterial Blood Pressure 112/86 Arterial Blood Pressure 104/79 Arterial Blood Pressure 101/81 Arterial Blood Pressure 103/82 Arterial Blood Pressure 108/85 Arterial Blood Pressure 106/80 Arterial Blood Pressure 66/57 GENERAL EXAM: Intubated, sedated 60-year-old obese male patient. HEAD: Normocephalic. EYES: Normal reaction of pupils, equal size. NOSE: Clear with pink turbinates. THROAT: Oral endotracheal and gastric tube secured in place No erythema or exudates. NECK: No masses, no JVD. CHEST: No chest wall deformity. LUNGS: Equal air entry with bilateral coarse crackles. CVS: S1 and S2 normal with no audible murmur, regular rhythm. Bradycardic ABDOMEN: No hepatosplenomegaly, normal bowel sounds, no guarding or rigidity. SPINE: No scoliosis or deformity SKIN: No rashes CENTRAL NERVOUS SYSTEM: No focal deficits, tone is normal in all 4 extremities. EXTREMITIES: Impella in place to the groin. There is no peripheral edema. No clubbing, no cyanosis. Peripheral pulses are intact. Results - Laboratory Findings CBC and BMP: 08/18/21 11:07 08/18/21 11:37 ABG ABG pH 7.33 (7.35-7.45) L 08/18/21 08:31 ABG pCO2 39 mmHg (35-45) 08/18/21 08:31 ABG pO2 373 mmHg (83-108) H 08/18/21 08:31 ABG O2 Saturation 99.7 % (94-97) H 08/18/21 08:31 PT/INR, D-dimer PT 10.9 sec (9.0-12.0) 08/18/21 02:41 INR 1.0 (<1.2) 08/18/21 02:41 Abnormal lab findings: Abnormal Labs 08/18/21 08/18/21 08/18/21 02:40 02:41 02:41 WBC 21.6 H Neutrophils # 16.1 H Monocytes # 1.2 H Fibrinogen ABG pH ABG pCO2 ABG pO2 ABG HCO3 ABG Total CO2 ABG O2 Saturation Sodium 133 L Potassium Chloride Carbon Dioxide 19 L Glucose 334 H POC Glucose (mg/dL) 331 H Calcium Total Bilirubin AST 71 H ALT 51 H Alkaline Phosphatase 132 H Troponin I Albumin 08/18/21 08/18/21 08/18/21 02:41 04:48 06:33 WBC Neutrophils # Monocytes # Fibrinogen ABG pH 7.22 L ABG pCO2 58 H ABG pO2 ABG HCO3 ABG Total CO2 25 H ABG O2 Saturation Sodium Potassium Chloride Carbon Dioxide Glucose POC Glucose (mg/dL) 230 H Calcium Total Bilirubin AST ALT Alkaline Phosphatase Troponin I 5.440 H* Albumin 08/18/21 08/18/21 08/18/21 08:31 08:37 11:07 WBC 27.5 H Neutrophils # 25.1 H Monocytes # Fibrinogen ABG pH 7.33 L ABG pCO2 ABG pO2 373 H ABG HCO3 20 L ABG Total CO2 ABG O2 Saturation 99.7 H Sodium Potassium Chloride Carbon Dioxide Glucose POC Glucose (mg/dL) 236 H Calcium Total Bilirubin AST ALT Alkaline Phosphatase Troponin I Albumin 08/18/21 08/18/21 11:07 11:37 WBC Neutrophils # Monocytes # Fibrinogen 532 H ABG pH ABG pCO2 ABG pO2 ABG HCO3 ABG Total CO2 ABG O2 Saturation Sodium 135 L Potassium 5.4 H Chloride 108 H Carbon Dioxide 19 L Glucose 210 H POC Glucose (mg/dL) Calcium 7.7 L Total Bilirubin 2.5 H AST 211 H ALT 73 H Alkaline Phosphatase Troponin I Albumin 3.4 L - Diagnostic Findings Chest x-ray: image reviewed Assessment and Plan Assessment: Acute ST segment elevation myocardial infarction secondary to coronary artery disease, stents placed to the mid LAD, OM1 2. Aspiration thrombectomy the OM1. Placement of Impella. Postoperative day #0 Acute hypoxemic respiratory failure secondary to above and acute pulmonary edema requiring intubation mechanical ventilatory support Hypotension secondary to above currently on norepinephrine at 12 mcg/m Symptoms of heartburn 1 week prior, plan was for outpatient stress test 08/23/2021 Morbid obesity History of hypertension Hyperlipidemia Diabetes mellitus Plan: The patient was seen and evaluated Chest x-ray, ABGs and labs reviewed Ventilator adjustments made currently on 40% FiO2 and a PEEP of 5 Titrate the pressors as tolerated Impella remains in place Remains on heparin drip, Aggrastat drip Continue propofol Check TSH and cortisol levels Continue diuretics Follow-up chest x-ray, ABGs and labs in the a.m. Prognosis remains quite guarded We will continue to follow and make further recommendations based on his clinical status I have personally seen and examined the patient, performed the documentation and the assessment and plan as written. Number of minutes spent on the visit: 20.
[2021-08-18] MEDS ORDERED: Magnesium Replacement Protocol 1 EACH MISC MISCELLANE PRN (13:08)
[2021-08-18] MEDS: MAGNESIUM SULFATE-D5W PMX 1 GM in DEXTROSE/WATER 1 100ML.BAG IVPB SCH ×2 (14:18→15:10)
[2021-08-18] MEDS: TICAGRELOR 90 MG TAB PO SCH (17:35)
[2021-08-18 17:37] LABS: Glucose,Whole Blood 176 mg/dL (75-99)
[2021-08-18 18:14] LABS: Partial Thromboplastin Time 31.9 sec (22.0-30.0)
[2021-08-18] MEDS: HEPARIN SODIUM 1,000 UN/ML (10ML VL) IV PRN (18:24)
[2021-08-18] MEDS: ATORVASTATIN 80 MG TAB PO SCH ×2 (18:28→20:26)
[2021-08-18 22:10] LABS: HCT 39.4 % (39.0-53.0); HGB 13.3 gm/dL (13.0-17.5); MCH 30.6 pg (25.0-35.0); MCHC 33.9 g/dL (31.0-37.0); MCV 90.2 fL (80.0-100.0); Mean Platelet Volume 9.2; Platelet Count 279 k/uL (150-450); RBC 4.37 m/uL (4.30-5.90); WBC 17.1 k/uL (3.8-10.6)
[2021-08-19 00:52] LABS: Glucose,Whole Blood 161 mg/dL (75-99)
[2021-08-19] MEDS: NOREPINEPHRINE 4 MG in SODIUM CHLORIDE 0.9% 250 ML IV SCH ×9 (00:53→22:12)
[2021-08-19] MEDS: INSULIN ASPART (NovoLOG) 100 UNIT/ML VIAL SQ SCH ×4 (00:53→18:02)
[2021-08-19] MEDS: HEPARIN SODIUM 1,000 UN/ML (10ML VL) IV PRN (02:16)
[2021-08-19] MEDS: TIROFIBAN 12.5MG-250ML NS 250 ML IV SCH (03:37)
[2021-08-19 05:13] LABS: Basophils # (A) 0.1 k/uL (0-0.2); Basophils % (A) 1 %; Eosinophils # (A) 0.1 k/uL (0-0.7); Eosinophils % (A) 0 %; HCT 36.1 % (39.0-53.0); Lymphocytes # (A) 1.7 k/uL (1.0-4.8); Lymphocytes % (A) 9 %; MCH 29.8 pg (25.0-35.0); MCHC 33.3 g/dL (31.0-37.0); MCV 89.5 fL (80.0-100.0); Mean Platelet Volume 9.2; Monocytes % (A) 5 %; Neutrophils # (A) 16.6 k/uL (1.3-7.7); Neutrophils % (A) 84 %; Platelet Count 246 k/uL (150-450); RBC 4.03 m/uL (4.30-5.90); RDW 13.5 % (11.5-15.5); WBC 19.8 k/uL (3.8-10.6)
[2021-08-19 05:19] LABS: ABG Base Excess 1.5 mmol/L; ABG HCO3 25 mmol/L (21-25); ABG Oxygen Saturation 96.6 % (94-97); ABG PCO2 34 mmHg (35-45); ABG PH 7.48 (7.35-7.45); ABG PO2 84 mmHg (83-108); ABG TCO2 26 mmol/L (19-24)
[2021-08-19 05:25] LABS: Potassium 3.7 mmol/L (3.5-5.1)
[2021-08-19 05:26] LABS: Calcium 8.3 mg/dL (8.4-10.2); Magnesium 2.1 mg/dL (1.6-2.3)
[2021-08-19] MEDS ORDERED: FUROSEMIDE 10 MG/ML 4 ML VIAL ONE (05:30)
[2021-08-19] MEDS ORDERED: PROPOFOL 10 MG/ML 100 ML VIAL IV ONE (05:30)
[2021-08-19] MEDS ORDERED: TICAGRELOR 90 MG TAB ONE (05:30)
[2021-08-19] MEDS ORDERED: ASPIRIN 81 MG ONE (05:30)
[2021-08-19] MEDS ORDERED: CHLORHEXIDINE GLUCONATE 15 ML CUP MUCOUS MEM ONE (05:30)
[2021-08-19 06:01] LABS: INR 1.1 (<1.2); Prothrombin Time 11.5 sec (9.0-12.0)
[2021-08-19] MEDS: HEPARIN SOD,PORK IN 0.45% NACL 25,000 UNIT in 0.45% NACL 1 250ML.BAG IV SCH (07:50)
--- NOTE | 2021-08-19 10:42 | CA ---
Transthoracic Echo Report Name: José Norton Age: 60 Gender: M : 1960 Exam Date: 08/19/2021 08:39 Exam Location: [place] [facility] Ht (in): 72 Wt (lb): 290 Ordering Physician: Khalif Moncada MD ([id number]) Attending/Referring Phys: Airplane Navigator CK Procedure CPT: Indications: stemi Cardiac Hx: Morbid obesity,Pt is NM with Impella Device in place. Technical Quality: Technically difficult study Contrast 1: Lumason Total Dose (mL): 1 Contrast 2: Total Dose (mL): MEASUREMENTS (Male / Female) Normal Values 2D ECHO LV Diastolic Diameter PLAX 5.0 cm 4.2 - 5.9 / 3.9 - 5.3 cm LV Systolic Diameter PLAX 4.0 cm IVS Diastolic Thickness 1.4 cm 0.6 - 1.0 / 0.6 - 0.9 cm LVPW Diastolic Thickness 1.8 cm 0.6 - 1.0 / 0.6 - 0.9 cm LV Relative Wall Thickness 0.6 RV Internal Dim ED PLAX 3.2 cm LA Systolic Diameter LX 3.7 cm 3.0 - 4.0 / 2.7 - 3.8 cm M-MODE MV E Point Septal Separation 0.5 cm FINDINGS Left Ventricle Moderately increased septal wall thickness. Hypokinetic inferior wall. EF 40- 45% Right Ventricle Normal right ventricular size and function. Right Atrium Normal right atrial size. Left Atrium Normal left atrial size. Mitral Valve Mitral valve not well visualized. Aortic Valve Aortic valve not well visualized. Tricuspid Valve Tricuspid valve not well visualized. Pulmonic Valve Pulmonic valve not well visualized. Pericardium Normal pericardium. Aorta Impella Device in place. CONCLUSIONS 40 % EF with inferopost hypokinesis. poor Doppler cant comment on MR or TR Previewed by: Dr. Shannon Ogden MD (Electronically Signed) Final Date: 19 August 2021 10:39
[2021-08-19 10:46] LABS: Glucose,Whole Blood 162 mg/dL (75-99)
[2021-08-19] MEDS ORDERED: MORPHINE SULFATE 4 MG/ML SYRINGE ONE (10:59)
[2021-08-19] MEDS: CHLORHEXIDINE GLUCONATE 15 ML CUP MUCOUS MEM SCH ×2 (11:15→21:51)
[2021-08-19] MEDS: ASPIRIN 81 MG PO SCH (11:15)
[2021-08-19] MEDS: TICAGRELOR 90 MG TAB PO SCH ×2 (11:15→21:52)
[2021-08-19] MEDS: FUROSEMIDE 10 MG/ML 4 ML VIAL IV SCH ×2 (11:15→21:51)
--- NOTE | 2021-08-19 12:29 | XR ---
EXAMINATION TYPE: XR chest 1V portable DATE OF EXAM: 08/19/2021 COMPARISON: 08/18/2021 HISTORY: Shortness of breath FINDINGS: There are bilateral pleural effusions with cardiomegaly and bibasilar infiltrate. There is a diffuse interstitial pattern. ET and NG tube stable. Left-sided central line noted. Correlate for cardiac le ads overlying the cardiac silhouette. IMPRESSION: 1. Correlate for CHF versus diffuse pneumonia. Findings stable.
--- NOTE | 2021-08-19 12:45 | P.PN ---
Subjective Progress Note Date: 08/19/21 Pt intubated, Impella still at power 9. Plan for repeat [facility] today with possible impella removal. Gen: Intubated, sedated HEENT: normocephalic, atraumatic,moist mucous membranes Resp: Intubated, vent before meals 500, FiO2 40%, PEEP 5 CVS: good distal perfusion x 4, tachycardic GI: soft, NTTP, ND : no SPT, no CVAT, hu catheter is present MSK: + pitting edema, no clubbing Assessment/plan: STEMI -Admit to inpatient, ICU, telemetry -Aspirin, brillinta, statin -Currently on Aggrastat -Impala per cardiology -Levo fed as needed -Cardiology, pulmonary consultation appreciated -Nitro drip as needed -Morphine as needed Hypertension Hyperlipidemia Diabetes type 2 Obesity -Home medications reviewed and reconciled Pt is Full Code Objective - Vital Signs Vital signs: Vital Signs Temp 101.1 F H 08/19/21 03:00 Pulse 65 08/19/21 11:10 Resp 24 08/19/21 11:10 BP 97/68 08/19/21 11:10 Pulse Ox 97 08/19/21 11:10 Intake & Output 08/18/21 08/19/21 08/19/21 18:59 06:59 18:59 Intake Total 4210.622 5509.698 74.688 Output Total 1225 2205 Balance 503.816 -1081.302 74.688 Weight 131.2 kg 131.2 kg Intake: IV 1025 825 Magnesium Sulfate-D5w Pmx 200 1 gm In Dextrose/Water 1 100ml.bag @ 100 mls/hr IVPB Q1H [facility] Rx#: [id number] Sodium Chloride 0.9% 1, 825 825 000 ml In Empty Bag 1 bag @ 75 mls/hr IV .[id number] [facility] Rx#:[id number] Intake, IV Titration 623.816 298.698 74.688 Amount Heparin Sod,Pork in 0.45% 50.454 74.892 74.688 NaCl 25,000 unit In 0.45 % NaCl 1 250ml.bag @ 5. 207 UNITS/KG/HR 6.849 mls /hr IV .Q24H [facility] Rx#: [id number] Norepinephrine 4 mg In 284.572 59.971 Sodium Chloride 0.9% 250 ml @ 0.24 MCG/KG/MIN 120. 282 mls/hr IV .Q2H7M [facility] Rx#:[id number] propofoL 1,000 mg In 288.790 163.835 Empty Bag 1 bag @ 5 MCG/ KG/MIN 3.946 mls/hr IV . Q24H [facility] Rx#:[id number] Other 80 Output: Gastric Drainage 300 Urine 925 2205 Other: Voiding Method Indwelling Catheter Indwelling Catheter ABP, PAP, CO, CI - Last Documented Arterial Blood Pressure 107/61 - Labs CBC & Chem 7: 08/19/21 04:50 08/19/21 04:50 Labs: Abnormal Lab Results - Last 24 Hours (Table) 08/18/21 08/18/21 08/18/21 Range/Units 10:41 11:07 14:45 WBC (3.8-10.6) k/uL RBC (4.30-5.90) m/uL Hgb (13.0-17.5) gm/dL Hct (39.0-53.0) % Neutrophils # (1.3-7.7) k/uL APTT (22.0-30.0) sec Fibrinogen 523 H (200-500) mg/dL ABG Lactic Acid 1.8 H (0.5-1.6) mmol/L Sodium (137-145) mmol/L BUN (9-20) mg/dL Glucose (74-99) mg/dL POC Glucose (mg/dL) (75-99) mg/dL Hemoglobin A1c 7.0 H (0.0-6.0) % Calcium (8.4-10.2) mg/dL Lactate Dehydrogenase (313-618) U/L 08/18/21 08/18/21 08/18/21 Range/Units 14:45 17:29 17:30 WBC (3.8-10.6) k/uL RBC (4.30-5.90) m/uL Hgb (13.0-17.5) gm/dL Hct (39.0-53.0) % Neutrophils # (1.3-7.7) k/uL APTT 31.9 H (22.0-30.0) sec Fibrinogen 524 H (200-500) mg/dL ABG Lactic Acid (0.5-1.6) mmol/L Sodium (137-145) mmol/L BUN (9-20) mg/dL Glucose (74-99) mg/dL POC Glucose (mg/dL) 176 H (75-99) mg/dL Hemoglobin A1c (0.0-6.0) % Calcium (8.4-10.2) mg/dL Lactate Dehydrogenase 3757 H (313-618) U/L 08/18/21 08/18/21 08/18/21 Range/Units 17:30 21:40 21:40 WBC (3.8-10.6) k/uL RBC (4.30-5.90) m/uL Hgb (13.0-17.5) gm/dL Hct (39.0-53.0) % Neutrophils # (1.3-7.7) k/uL APTT (22.0-30.0) sec Fibrinogen 562 H (200-500) mg/dL ABG Lactic Acid (0.5-1.6) mmol/L Sodium (137-145) mmol/L BUN (9-20) mg/dL Glucose (74-99) mg/dL POC Glucose (mg/dL) (75-99) mg/dL Hemoglobin A1c (0.0-6.0) % Calcium (8.4-10.2) mg/dL Lactate Dehydrogenase 4195 H 18517 H (313-618) U/L 08/18/21 08/19/21 08/19/21 Range/Units 21:40 00:50 02:30 WBC 17.1 H (3.8-10.6) k/uL RBC (4.30-5.90) m/uL Hgb (13.0-17.5) gm/dL Hct (39.0-53.0) % Neutrophils # (1.3-7.7) k/uL APTT (22.0-30.0) sec Fibrinogen 549 H (200-500) mg/dL ABG Lactic Acid (0.5-1.6) mmol/L Sodium (137-145) mmol/L BUN (9-20) mg/dL Glucose (74-99) mg/dL POC Glucose (mg/dL) 161 H (75-99) mg/dL Hemoglobin A1c (0.0-6.0) % Calcium (8.4-10.2) mg/dL Lactate Dehydrogenase (313-618) U/L 08/19/21 08/19/21 08/19/21 Range/Units 02:30 04:50 04:50 WBC 19.8 H (3.8-10.6) k/uL RBC 4.03 L (4.30-5.90) m/uL Hgb 12.0 L (13.0-17.5) gm/dL Hct 36.1 L (39.0-53.0) % Neutrophils # 16.6 H (1.3-7.7) k/uL APTT (22.0-30.0) sec Fibrinogen (200-500) mg/dL ABG Lactic Acid (0.5-1.6) mmol/L Sodium 134 L (137-145) mmol/L BUN 23 H (9-20) mg/dL Glucose 155 H (74-99) mg/dL POC Glucose (mg/dL) (75-99) mg/dL Hemoglobin A1c (0.0-6.0) % Calcium 8.3 L (8.4-10.2) mg/dL Lactate Dehydrogenase 4881 H (313-618) U/L 08/19/21 08/19/21 08/19/21 Range/Units 04:51 08:15 08:15 WBC (3.8-10.6) k/uL RBC (4.30-5.90) m/uL Hgb (13.0-17.5) gm/dL Hct (39.0-53.0) % Neutrophils # (1.3-7.7) k/uL APTT (22.0-30.0) sec Fibrinogen 585 H (200-500) mg/dL ABG Lactic Acid (0.5-1.6) mmol/L Sodium (137-145) mmol/L BUN (9-20) mg/dL Glucose (74-99) mg/dL POC Glucose (mg/dL) 162 H (75-99) mg/dL Hemoglobin A1c (0.0-6.0) % Calcium (8.4-10.2) mg/dL Lactate Dehydrogenase 4264 H (313-618) U/L Microbiology - Last 24 Hours (Table) 08/18/21 19:05 Gram Stain - Preliminary Sputum Sputum Culture - Preliminary
[2021-08-19] MEDS ORDERED: HYDROmorphone 0.5 MG/0.5 ML SYRINGE IVP ONE (12:55)
--- NOTE | 2021-08-19 13:01 | P.PN ---
Subjective Progress Note Date: 08/19/21 HISTORY OF PRESENT ILLNESS: 08/18/2021 Patient is a 60-year-old male who was brought to the hospital yesterday with a STEMI. Patient underwent cardiac catheterization, where stenting was completed to the mid LAD, OM1, aspiration thrombectomy from the OM1/LCx, successful placement of an Impella CP in the left ventricle. Patient was intubated prior to the procedure, remains intubated at this time. Patient remains on heparin, nitro, norepinephrine, propofol, and tirofiban. Secondary to cardiogenic shock and extremely elevated left-sided filling pressures, will start patient on Lasix 40 mg IV push twice a day. 08/19/2021 Patient seen and examined this morning at the bedside in the intensive care unit. Patient is status post cardiac catheterization with stenting of the mid LAD and OM1. Patient also underwent aspiration thrombectomy from the OM1/left circumflex. Patient also had placement of an Impella. Patient remains intubated and sedated. His is at the bedside. Per nursing, the patient's neuro status has remained intact. His vital signs have been stable. He is scheduled to return to the [facility] today with Dr. Morris for possible further intervention and removal of Impella. PHYSICAL EXAM: VITAL SIGNS: Reviewed. GENERAL: Well-developed in no acute distress. NECK: Supple. No JVD or thyromegaly LUNGS: Respirations even and unlabored. Lungs diminished to auscultation bilaterally. HEART: Regular rate and rhythm. S1 and S2 heard. EXTREMITIES: Normal range of motion. No clubbing or cyanosis. Peripheral pulses intact. Trace lower extremity edema ASSESSMENT: STEMI, s/p PCI of LAD and OM1 Cardiogenic shock requiring vasopressor support Acute hypoxic respiratory failure requiring mechanical ventilation History of hypertension Hyperlipidemia Diabetes PLAN: Continue current cardiac medications Patient is scheduled to return to the [facility] today with Dr. Moncada for possible further intervention and possible removal of impella. Further recommendation pending patient course Nurse practitioner note has been reviewed by physician. Signing provider agrees with the documented findings, assessment, and plan of care. Objective - Vital Signs Vital signs: Vital Signs Temp 101.1 F H 08/19/21 03:00 Pulse 65 08/19/21 11:10 Resp 24 08/19/21 11:10 BP 97/68 08/19/21 11:10 Pulse Ox 97 08/19/21 11:10 Intake & Output 08/18/21 08/19/21 08/19/21 18:59 06:59 18:59 Intake Total 0768.622 6473.698 74.688 Output Total 1225 2205 Balance 503.816 -1081.302 74.688 Weight 131.2 kg 131.2 kg Intake: IV 1025 825 Magnesium Sulfate-D5w Pmx 200 1 gm In Dextrose/Water 1 100ml.bag @ 100 mls/hr IVPB Q1H JESSY Rx#: [id number] Sodium Chloride 0.9% 1, 825 825 000 ml In Empty Bag 1 bag @ 75 mls/hr IV .[id number] JESSY Rx#:[id number] Intake, IV Titration 623.816 298.698 74.688 Amount Heparin Sod,Pork in 0.45% 50.454 74.892 74.688 NaCl 25,000 unit In 0.45 % NaCl 1 250ml.bag @ 5. 207 UNITS/KG/HR 6.849 mls /hr IV .Q24H JESSY Rx#: [id number] Norepinephrine 4 mg In 284.572 59.971 Sodium Chloride 0.9% 250 ml @ 0.24 MCG/KG/MIN 120. 282 mls/hr IV .Q2H7M JESSY Rx#:[id number] propofoL 1,000 mg In 288.790 163.835 Empty Bag 1 bag @ 5 MCG/ KG/MIN 3.946 mls/hr IV . Q24H JESSY Rx#:[id number] Other 80 Output: Gastric Drainage 300 Urine 925 2205 Other: Voiding Method Indwelling Catheter Indwelling Catheter ABP, PAP, CO, CI - Last Documented Arterial Blood Pressure 107/61 - Labs CBC & Chem 7: 08/19/21 04:50 08/19/21 04:50 Labs: Abnormal Lab Results - Last 24 Hours (Table) 08/18/21 08/18/21 08/18/21 Range/Units 10:41 11:07 14:45 WBC (3.8-10.6) k/uL RBC (4.30-5.90) m/uL Hgb (13.0-17.5) gm/dL Hct (39.0-53.0) % Neutrophils # (1.3-7.7) k/uL APTT (22.0-30.0) sec Fibrinogen 523 H (200-500) mg/dL ABG Lactic Acid 1.8 H (0.5-1.6) mmol/L Sodium (137-145) mmol/L BUN (9-20) mg/dL Glucose (74-99) mg/dL POC Glucose (mg/dL) (75-99) mg/dL Hemoglobin A1c 7.0 H (0.0-6.0) % Calcium (8.4-10.2) mg/dL Lactate Dehydrogenase (313-618) U/L 08/18/21 08/18/21 08/18/21 Range/Units 14:45 17:29 17:30 WBC (3.8-10.6) k/uL RBC (4.30-5.90) m/uL Hgb (13.0-17.5) gm/dL Hct (39.0-53.0) % Neutrophils # (1.3-7.7) k/uL APTT 31.9 H (22.0-30.0) sec Fibrinogen 524 H (200-500) mg/dL ABG Lactic Acid (0.5-1.6) mmol/L Sodium (137-145) mmol/L BUN (9-20) mg/dL Glucose (74-99) mg/dL POC Glucose (mg/dL) 176 H (75-99) mg/dL Hemoglobin A1c (0.0-6.0) % Calcium (8.4-10.2) mg/dL Lactate Dehydrogenase 3757 H (313-618) U/L 08/18/21 08/18/21 08/18/21 Range/Units 17:30 21:40 21:40 WBC (3.8-10.6) k/uL RBC (4.30-5.90) m/uL Hgb (13.0-17.5) gm/dL Hct (39.0-53.0) % Neutrophils # (1.3-7.7) k/uL APTT (22.0-30.0) sec Fibrinogen 562 H (200-500) mg/dL ABG Lactic Acid (0.5-1.6) mmol/L Sodium (137-145) mmol/L BUN (9-20) mg/dL Glucose (74-99) mg/dL POC Glucose (mg/dL) (75-99) mg/dL Hemoglobin A1c (0.0-6.0) % Calcium (8.4-10.2) mg/dL Lactate Dehydrogenase 4195 H 38643 H (313-618) U/L 08/18/21 08/19/21 08/19/21 Range/Units 21:40 00:50 02:30 WBC 17.1 H (3.8-10.6) k/uL RBC (4.30-5.90) m/uL Hgb (13.0-17.5) gm/dL Hct (39.0-53.0) % Neutrophils # (1.3-7.7) k/uL APTT (22.0-30.0) sec Fibrinogen 549 H (200-500) mg/dL ABG Lactic Acid (0.5-1.6) mmol/L Sodium (137-145) mmol/L BUN (9-20) mg/dL Glucose (74-99) mg/dL POC Glucose (mg/dL) 161 H (75-99) mg/dL Hemoglobin A1c (0.0-6.0) % Calcium (8.4-10.2) mg/dL Lactate Dehydrogenase (313-618) U/L 08/19/21 08/19/21 08/19/21 Range/Units 02:30 04:50 04:50 WBC 19.8 H (3.8-10.6) k/uL RBC 4.03 L (4.30-5.90) m/uL Hgb 12.0 L (13.0-17.5) gm/dL Hct 36.1 L (39.0-53.0) % Neutrophils # 16.6 H (1.3-7.7) k/uL APTT (22.0-30.0) sec Fibrinogen (200-500) mg/dL ABG Lactic Acid (0.5-1.6) mmol/L Sodium 134 L (137-145) mmol/L BUN 23 H (9-20) mg/dL Glucose 155 H (74-99) mg/dL POC Glucose (mg/dL) (75-99) mg/dL Hemoglobin A1c (0.0-6.0) % Calcium 8.3 L (8.4-10.2) mg/dL Lactate Dehydrogenase 4881 H (313-618) U/L 08/19/21 08/19/21 08/19/21 Range/Units 04:51 08:15 08:15 WBC (3.8-10.6) k/uL RBC (4.30-5.90) m/uL Hgb (13.0-17.5) gm/dL Hct (39.0-53.0) % Neutrophils # (1.3-7.7) k/uL APTT (22.0-30.0) sec Fibrinogen 585 H (200-500) mg/dL ABG Lactic Acid (0.5-1.6) mmol/L Sodium (137-145) mmol/L BUN (9-20) mg/dL Glucose (74-99) mg/dL POC Glucose (mg/dL) 162 H (75-99) mg/dL Hemoglobin A1c (0.0-6.0) % Calcium (8.4-10.2) mg/dL Lactate Dehydrogenase 4264 H (313-618) U/L 08/19/21 Range/Units 11:07 WBC (3.8-10.6) k/uL RBC (4.30-5.90) m/uL Hgb (13.0-17.5) gm/dL Hct (39.0-53.0) % Neutrophils # (1.3-7.7) k/uL APTT 43.1 H (22.0-30.0) sec Fibrinogen (200-500) mg/dL ABG Lactic Acid (0.5-1.6) mmol/L Sodium (137-145) mmol/L BUN (9-20) mg/dL Glucose (74-99) mg/dL POC Glucose (mg/dL) (75-99) mg/dL Hemoglobin A1c (0.0-6.0) % Calcium (8.4-10.2) mg/dL Lactate Dehydrogenase (313-618) U/L Microbiology - Last 24 Hours (Table) 08/18/21 19:05 Gram Stain - Preliminary Sputum Sputum Culture - Preliminary
[2021-08-19] MEDS ORDERED: IOPAMIDOL-370 125ML BTL INJ ONE (13:02)
[2021-08-19] MEDS ORDERED: RX INFO: IV CONTRAST WAS GIVEN 1 EACH MISC MISCELLANE PRN (13:11)
[2021-08-19] MEDS ORDERED: SODIUM CHLORIDE 0.9% 1,000 ML IV SCH (13:15)
--- NOTE | 2021-08-19 13:17 | P.PN ---
Subjective Progress Note Date: 08/19/21 08/19/2021, I'm seeing the patient for a follow-up. The patient this morning is intubated on a mechanical ventilator. The patient is post acute ST segment elevation myocardial infarction complicated by acute pulmonary edema and acute cardiogenic shock with hypoxic respiratory failure. The patient underwent multivessel stenting including 2 stents in the wind branch and another stent in the LAD and the patient was given a Impela device for cardiac support. This morning, the patient is sedated with propofol at the rate of 50 mg/kg per minute. The patient is on a mechanical ventilator at the rate of 22 with a tidal volume of 500 and FiO2 of 40% with a PEEP of 5. The blood gases shows a pH of 7.48 with a pCO2 of 34 and pO2 of 84. The patient has an impeller device with cardiac: Mentation and order of 2.3 L per minute,p-9 support, and augmented blood pressure currently is at 122/74. The patient is also on a low-dose norepinephrine infusion currently running at 0.02 mcg kilogram per minute. The patient is on a combination of medication including aspirin and Brilinta. The patient remains on IV heparin and the patient is also on Aggrastat and with this current combination, the patient is having blood oozing from the indwelling catheter sites including the one in his left IJ and others in the groin. He also has some bloody urine output. The chest x-ray showing cardiomegaly, indwe lling catheters are all in place. The patient also has bilateral pleural effusion as noted on today's chest x-ray. ET tube is in a good location. Findings and essentially consistent with CHF. On today's blood work, the white cell count of 19.8 with a hemoglobin of 12 and a platelet count of 246, sodium is at 134 with a BUN of 23 and a creatinine of 1.1, glucose at 155, LDH level was up to 4264. The patient had a urine output in the order of 50 mL an hour. He is on IV Lasix 40 mg IV every 12 hours. The plan is to take this patient back for another cardiac catheterization for reevaluation. Objective - Vital Signs Vital signs: Vital Signs Temp 101.1 F H 08/19/21 03:00 Pulse 65 08/19/21 11:10 Resp 24 08/19/21 11:10 BP 97/68 08/19/21 11:10 Pulse Ox 97 08/19/21 11:10 Intake & Output 08/18/21 08/19/21 08/19/21 18:59 06:59 18:59 Intake Total 7135.889 4096.698 74.688 Output Total 1225 2205 Balance 503.816 -1081.302 74.688 Weight 131.2 kg 131.2 kg Intake: IV 1025 825 Magnesium Sulfate-D5w Pmx 200 1 gm In Dextrose/Water 1 100ml.bag @ 100 mls/hr IVPB Q1H JESSY Rx#: [id number] Sodium Chloride 0.9% 1, 825 825 000 ml In Empty Bag 1 bag @ 75 mls/hr IV .[id number] JESSY Rx#:[id number] Intake, IV Titration 623.816 298.698 74.688 Amount Heparin Sod,Pork in 0.45% 50.454 74.892 74.688 NaCl 25,000 unit In 0.45 % NaCl 1 250ml.bag @ 5. 207 UNITS/KG/HR 6.849 mls /hr IV .Q24H JESSY Rx#: [id number] Norepinephrine 4 mg In 284.572 59.971 Sodium Chloride 0.9% 250 ml @ 0.24 MCG/KG/MIN 120. 282 mls/hr IV .Q2H7M JESSY Rx#:[id number] propofoL 1,000 mg In 288.790 163.835 Empty Bag 1 bag @ 5 MCG/ KG/MIN 3.946 mls/hr IV . Q24H JESSY Rx#:[id number] Other 80 Output: Gastric Drainage 300 Urine 925 2205 Other: Voiding Method Indwelling Catheter Indwelling Catheter ABP, PAP, CO, CI - Last Documented Arterial Blood Pressure 107/61 - Exam GENERAL EXAM: Intubated, sedated 60-year-old obese male patient.the patient is sedated. The patient has blood oozing from various indwelling catheter sites including the ones in the left inguinal area and left neck area. HEAD: Normocephalic. EYES: Normal reaction of pupils, equal size. NOSE: Clear with pink turbinates. THROAT: Oral endotracheal and gastric tube secured in place No erythema or exudates. NECK: No masses, no JVD. CHEST: No chest wall deformity. LUNGS: Equal air entry with bilateral coarse crackles. CVS: S1 and S2 normal with no audible murmur, regular rhythm. ABDOMEN: No hepatosplenomegaly, normal bowel sounds, no guarding or rigidity. SPINE: No scoliosis or deformity SKIN: No rashes CENTRAL NERVOUS SYSTEM: No focal deficits, tone is normal in all 4 extremities. EXTREMITIES: Impella in place to the groin. There is no peripheral edema. No clubbing, no cyanosis. Peripheral pulses are intact. - Labs CBC & Chem 7: 08/19/21 04:50 08/19/21 04:50 Labs: Abnormal Lab Results - Last 24 Hours (Table) 08/18/21 08/18/21 08/18/21 Range/Units 10:41 11:07 14:45 WBC (3.8-10.6) k/uL RBC (4.30-5.90) m/uL Hgb (13.0-17.5) gm/dL Hct (39.0-53.0) % Neutrophils # (1.3-7.7) k/uL APTT (22.0-30.0) sec Fibrinogen 523 H (200-500) mg/dL ABG Lactic Acid 1.8 H (0.5-1.6) mmol/L Sodium (137-145) mmol/L BUN (9-20) mg/dL Glucose (74-99) mg/dL POC Glucose (mg/dL) (75-99) mg/dL Hemoglobin A1c 7.0 H (0.0-6.0) % Calcium (8.4-10.2) mg/dL Lactate Dehydrogenase (313-618) U/L 08/18/21 08/18/21 08/18/21 Range/Units 14:45 17:29 17:30 WBC (3.8-10.6) k/uL RBC (4.30-5.90) m/uL Hgb (13.0-17.5) gm/dL Hct (39.0-53.0) % Neutrophils # (1.3-7.7) k/uL APTT 31.9 H (22.0-30.0) sec Fibrinogen 524 H (200-500) mg/dL ABG Lactic Acid (0.5-1.6) mmol/L Sodium (137-145) mmol/L BUN (9-20) mg/dL Glucose (74-99) mg/dL POC Glucose (mg/dL) 176 H (75-99) mg/dL Hemoglobin A1c (0.0-6.0) % Calcium (8.4-10.2) mg/dL Lactate Dehydrogenase 3757 H (313-618) U/L 08/18/21 08/18/21 08/18/21 Range/Units 17:30 21:40 21:40 WBC (3.8-10.6) k/uL RBC (4.30-5.90) m/uL Hgb (13.0-17.5) gm/dL Hct (39.0-53.0) % Neutrophils # (1.3-7.7) k/uL APTT (22.0-30.0) sec Fibrinogen 562 H (200-500) mg/dL ABG Lactic Acid (0.5-1.6) mmol/L Sodium (137-145) mmol/L BUN (9-20) mg/dL Glucose (74-99) mg/dL POC Glucose (mg/dL) (75-99) mg/dL Hemoglobin A1c (0.0-6.0) % Calcium (8.4-10.2) mg/dL Lactate Dehydrogenase 4195 H 44255 H (313-618) U/L 08/18/21 08/19/21 08/19/21 Range/Units 21:40 00:50 02:30 WBC 17.1 H (3.8-10.6) k/uL RBC (4.30-5.90) m/uL Hgb (13.0-17.5) gm/dL Hct (39.0-53.0) % Neutrophils # (1.3-7.7) k/uL APTT (22.0-30.0) sec Fibrinogen 549 H (200-500) mg/dL ABG Lactic Acid (0.5-1.6) mmol/L Sodium (137-145) mmol/L BUN (9-20) mg/dL Glucose (74-99) mg/dL POC Glucose (mg/dL) 161 H (75-99) mg/dL Hemoglobin A1c (0.0-6.0) % Calcium (8.4-10.2) mg/dL Lactate Dehydrogenase (313-618) U/L 08/19/21 08/19/21 08/19/21 Range/Units 02:30 04:50 04:50 WBC 19.8 H (3.8-10.6) k/uL RBC 4.03 L (4.30-5.90) m/uL Hgb 12.0 L (13.0-17.5) gm/dL Hct 36.1 L (39.0-53.0) % Neutrophils # 16.6 H (1.3-7.7) k/uL APTT (22.0-30.0) sec Fibrinogen (200-500) mg/dL ABG Lactic Acid (0.5-1.6) mmol/L Sodium 134 L (137-145) mmol/L BUN 23 H (9-20) mg/dL Glucose 155 H (74-99) mg/dL POC Glucose (mg/dL) (75-99) mg/dL Hemoglobin A1c (0.0-6.0) % Calcium 8.3 L (8.4-10.2) mg/dL Lactate Dehydrogenase 4881 H (313-618) U/L 08/19/21 08/19/21 08/19/21 Range/Units 04:51 08:15 08:15 WBC (3.8-10.6) k/uL RBC (4.30-5.90) m/uL Hgb (13.0-17.5) gm/dL Hct (39.0-53.0) % Neutrophils # (1.3-7.7) k/uL APTT (22.0-30.0) sec Fibrinogen 585 H (200-500) mg/dL ABG Lactic Acid (0.5-1.6) mmol/L Sodium (137-145) mmol/L BUN (9-20) mg/dL Glucose (74-99) mg/dL POC Glucose (mg/dL) 162 H (75-99) mg/dL Hemoglobin A1c (0.0-6.0) % Calcium (8.4-10.2) mg/dL Lactate Dehydrogenase 4264 H (313-618) U/L 08/19/21 Range/Units 11:07 WBC (3.8-10.6) k/uL RBC (4.30-5.90) m/uL Hgb (13.0-17.5) gm/dL Hct (39.0-53.0) % Neutrophils # (1.3-7.7) k/uL APTT 43.1 H (22.0-30.0) sec Fibrinogen (200-500) mg/dL ABG Lactic Acid (0.5-1.6) mmol/L Sodium (137-145) mmol/L BUN (9-20) mg/dL Glucose (74-99) mg/dL POC Glucose (mg/dL) (75-99) mg/dL Hemoglobin A1c (0.0-6.0) % Calcium (8.4-10.2) mg/dL Lactate Dehydrogenase (313-618) U/L Microbiology - Last 24 Hours (Table) 08/18/21 19:05 Gram Stain - Preliminary Sputum Sputum Culture - Preliminary Assessment and Plan Plan: Acute ST segment elevation myocardial infarction secondary to coronary artery disease, stents placed to the mid LAD, OM1 2. Aspiration thrombectomy the OM1. Placement of Impella. Postoperative day #1 the patient is still receiving augmentation , P-9, and the patient remains on low-dose norepinephrine infusion for now. The plan is to do another cardiac catheterization today to reevaluate his coronary anatomy. Meanwhile, the patient is sedated on a mechanical ventilator. Acute hypoxemic respiratory failure secondary to above and acute pulmonary edema requiring intubation mechanical ventilatory support acute cardiogenic shock secondary to above Hypotension secondary to above currently on norepinephrine at 0.02 micrograms per kilogram per minute Symptoms of heartburn 1 week prior, plan was for outpatient stress test 08/23/2021 Morbid obesity History of hypertension Hyperlipidemia Diabetes mellitus Plan: Continue ventilator support and drop the tidal volume to 450 mL Keep the patient sedated with propofol Continue aspirin and Brilinta Continued IV heparin Aggrastat per protocol Possible repeat cardiac catheterization today Keep Impella, P9 augmentation We'll continue to follow make further recommendation based on his progress. Condition is very critical and prognosis poor baseline above-mentioned comorbidities. We'll continue to follow. This evaluation was done in more than 35 minutes Time with Patient: Greater than 30
--- NOTE | 2021-08-19 13:19 | P.PCN ---
Date of Procedure: 08/19/21 Operative Findings: CARDIAC CATHETERIZATION PERFORMING PHYSICIAN: Khalif Moncada MD, RPVI PROCEDURE PERFORMED: 1. Selective right and left coronary angiogram 2. Removal of Impella from the left ventricle 3. Selective bilateral common femoral artery and a INDICATION: This is a 60-year-old gentleman who presented to the hospital yesterday with acute coronary syndrome and was found to have an occluded left circumflex with a large thrombus burden. Multiple balloon angioplasty were unsuccessful the patient was placed on heparin as well as Aggrastat and was brought today for second look angiogram COMPLICATION: None APPROACH: Right common femoral artery LEVEL OF SEDATION: The patient was sedated using propofol PROCEDURE DESCRIPTION: After obtaining an informed consent, the patient was brought to cardiac laboratory worker. There was a sheath in the right groin from before. Selective left coronary angiogram was performed using JL4 catheters. The procedure was completed there was no complication. After that the Impella was pulled from the left ventricle. Then I did suture the 2 Perclose. Selective left common femoral artery angiogram was performed using a rim catheter and going up and over. That showed no evidence of contrast leak with a good hemostasis in the left common femoral artery SELECTIVE CORONARY ANGIOGRAM: Left main: Is angiographically normal The left circumflex: Left circumflex is patent with minimal thrombus burden The left anterior descending artery: The LAD is patent with a thrombus involving the diagonal but not the LAD itself HEMODYNAMICS: [] CONCLUSION: 1. Patent stents in the left circumflex with the resolving of large thrombus from yesterday 2. Patent stent in the mid LAD with thrombus burden involving the diagonal but not the LAD itself POSTPROCEDURE MANAGEMENT: Consider triple therapy
[2021-08-19] MEDS: HEPARIN SODIUM,PORCINE 12,500 UNIT in DEXTROSE 5% IN WATER 500 ML IV SCH ×2 (13:52)
[2021-08-19 13:56] LABS: Glucose,Whole Blood 146 mg/dL (75-99)
[2021-08-19 14:17] LABS: Allen Test Performed? no
[2021-08-19 17:53] LABS: Glucose,Whole Blood 154 mg/dL (75-99)
[2021-08-19] MEDS: SODIUM CHLORIDE 0.9% 1,000 ML IV SCH (19:25)
[2021-08-19] MEDS: APIXABAN 2.5 MG TABLET PO SCH (21:52)
[2021-08-19] MEDS: ATORVASTATIN 80 MG TAB PO SCH (21:52)
[2021-08-20] MEDS: NOREPINEPHRINE 4 MG in SODIUM CHLORIDE 0.9% 250 ML IV SCH ×6 (00:56→21:05)
[2021-08-20] MEDS: INSULIN ASPART (NovoLOG) 100 UNIT/ML VIAL SQ SCH ×4 (01:01→19:02)
[2021-08-20 01:02] LABS: Glucose,Whole Blood 130 mg/dL (75-99)
[2021-08-20 05:54] LABS: Glucose,Whole Blood 125 mg/dL (75-99)
[2021-08-20 06:14] LABS: ABG Base Excess 4.7 mmol/L; ABG HCO3 29 mmol/L (21-25); ABG Oxygen Saturation 97.3 % (94-97); ABG PCO2 40 mmHg (35-45); ABG PH 7.46 (7.35-7.45); ABG PO2 87 mmHg (83-108); ABG TCO2 30 mmol/L (19-24); Allen Test Performed? Yes
--- NOTE | 2021-08-20 08:29 | XR ---
EXAMINATION TYPE: XR chest 1V portable DATE OF EXAM: 08/20/2021 COMPARISON: Chest x-ray dated 08/19/2021 HISTORY: Intubated TECHNIQUE: Single frontal view of the chest is obtained. FINDINGS: Endotracheal tube and NG tube are overlying appropriate positions, left jugular central ve nous catheter is again seen. Left ventricular assist device is no longer evident. No evident pneumoth orax. Bibasilar density persists. Cardiac mediastinal sweat is stable. Aorta is dense. There are over lying leads. IMPRESSION: Correlate for pulmonary edema, there may be basilar effusions and associated atelectasis , difficult to exclude pneumonia.
[2021-08-20 08:40] LABS: Basophils # (A) 0.1 k/uL (0-0.2); Basophils % (A) 0 %; Eosinophils # (A) 0.2 k/uL (0-0.7); Eosinophils % (A) 1 %; HGB 11.5 gm/dL (13.0-17.5); Lymphocytes # (A) 1.6 k/uL (1.0-4.8); Lymphocytes % (A) 9 %; MCH 29.8 pg (25.0-35.0); MCHC 31.9 g/dL (31.0-37.0); MCV 93.3 fL (80.0-100.0); Mean Platelet Volume 8.9; Monocytes % (A) 6 %; Neutrophils # (A) 14.2 k/uL (1.3-7.7); Neutrophils % (A) 82 %; Platelet Count 231 k/uL (150-450); RBC 3.86 m/uL (4.30-5.90); RDW 13.9 % (11.5-15.5); WBC 17.3 k/uL (3.8-10.6)
[2021-08-20 08:57] LABS: Calcium 8.2 mg/dL (8.4-10.2)
[2021-08-20] MEDS: APIXABAN 2.5 MG TABLET PO SCH ×2 (09:03→21:20)
[2021-08-20] MEDS: TICAGRELOR 90 MG TAB PO SCH ×2 (09:03→21:20)
[2021-08-20] MEDS: FUROSEMIDE 10 MG/ML 4 ML VIAL IV SCH ×2 (09:03→21:20)
[2021-08-20] MEDS: ASPIRIN 81 MG PO SCH (09:03)
[2021-08-20] MEDS: CHLORHEXIDINE GLUCONATE 15 ML CUP MUCOUS MEM SCH (09:03)
[2021-08-20] MEDS: SODIUM CHLORIDE 0.9% 1,000 ML IV SCH (11:48)
--- NOTE | 2021-08-20 12:16 | P.PN ---
Subjective Progress Note Date: 08/20/21 This is a 60-year-old male patient with a history of diabetes mellitus, hyperlipidemia, hypertension, obesity, possible medication noncompliance was brought in to the emergency room via EMS for an acute ST segment elevation myocardial infarction, acute pulmonary edema with acute respiratory failure. Apparently he had been having complaints of recurrent heartburn for 1 week prior, seen his primary care provider was treated with oral medications and scheduled for a stress test August 23. He was intubated in the emergency room for acute hypoxemic respiratory failure. He was taken urgently to the cardiac cook house laborer and had stents placed to the mid LAD, OM 12, aspiration thrombectomy of the OM1. Impella was placed. He was admitted to the intensive care unit where he is seen today in consultation. He remains intubated on the mechanical ventilator. Currently on assist control mode with a rate of 22, tidal volume 500, FiO2 60% and a PEEP of 5. Morning blood gases revealed a PaO2 of 373, P CO2 of 38 and a pH of 7.33. This was on 90% FiO2 and subsequently decreased to 40% FiO2. He is sedated on propofol at 45 mcg/kg/m. Heparin drip per weight- based protocol. Aggrastat at 0.15 mcg/kg/m. He is on norepinephrine at 12 mcg/m. Normal saline at 75 ML's per hour. White count 27.5. Hemoglobin 14.3. Platelets 373. Fibrinogen 532. Sodium 135. Potassium 5.4. Chloride 108. Bicarb 19. BUN 20. Creatinine 1.21. Glucose 210. TSH 0.601. Cortisol level XXII. A ST to 11. ALT 73. Troponin 5.44. ProBNP 1150. He's been initiated on Lasix 40 mg IV every 12 hours. Brilinta, aspirin, statins. Chest x-ray reveals multifocal airspace opacities, pulmonary vascular congestion. [place]ch[place] rdiogram pending. The patient is seen today 08/20/2021 in follow-up in the intensive care unit. H e remains intubated on a mechanical ventilator with current settings of assist control mode with a rate of 22, tidal volume 450, FiO2 40% and a PEEP of 5. Morning blood gases revealed a PaO2 of 87, pCO2 40 and a pH of 7.46. Chest x- ray revealed continued evidence of pulmonary edema with some basilar effusion and associated atelectasis. White count 17.3. Hemoglobin 11.5. Platelets 231. Sodium 138. Potassium 4.0. BUN 21. Creatinine 1.10. Glucose 129. He is sedated with propofol at 20 mcg/kg/m. Off pressors. Remains on IV Lasix at 40 mg every 12 hours. Currently in a -477 mL balance. Anticoagulated with Eliquis. Aggrastat and heparin drips were discontinued yesterday as the patient did have oozing at his puncture sites and blood-tinged urine. He did undergo follow-up cardiac catheterization yesterday and removal of the Impella from the left ventricle. Noted patent stents in the left circumflex and resolving of large thrombus. Patent stents in the mid LAD with thrombus burden involving the diagonal but not the LAD itself. He is continued on Brilinta and aspirin. Objective - Vital Signs Vital signs: Vital Signs Temp 98.8 F 08/20/21 08:00 Pulse 73 08/20/21 11:00 Resp 25 H 08/20/21 11:00 BP 94/55 08/20/21 11:00 Pulse Ox 94 L 08/20/21 11:00 Intake & Output 08/19/21 08/20/21 08/20/21 18:59 06:59 18:59 Intake Total 1756.418 6166.872 564.007 Output Total 1030 2060 1060 Balance 36.349 -679.128 -495.993 Weight 131.2 kg 127 kg Intake: IV 30 900 332 Sodium Chloride 0.9% 1, 900 320 000 ml @ 75 mls/hr IV . [id number] JESSY Rx#:[id number] pressure bags 30 12 Intake, IV Titration 1036.349 480.872 232.007 Amount Heparin Sod,Pork in 0.45% 74.688 NaCl 25,000 unit In 0.45 % NaCl 1 250ml.bag @ 5. 207 UNITS/KG/HR 6.849 mls /hr IV .Q24H JESSY Rx#: [id number] Norepinephrine 4 mg In 214.270 132.007 Sodium Chloride 0.9% 250 ml @ 0.24 MCG/KG/MIN 120. 282 mls/hr IV .Q2H7M JESSY Rx#:[id number] Sodium Chloride 0.9% 1, 600 000 ml @ 75 mls/hr IV . [id number] JESSY Rx#:[id number] propofoL 1,000 mg In 147.391 480.872 100 Empty Bag 1 bag @ 5 MCG/ KG/MIN 3.946 mls/hr IV . Q24H JESSY Rx#:[id number] Output: Urine 1030 2060 1060 Other: Voiding Method Indwelling Catheter Indwelling Catheter Indwelling Catheter ABP, PAP, CO, CI - Last Documented Arterial Blood Pressure 107/61 - Exam GENERAL EXAM: Intubated, sedated 60-year-old obese male patient.the patient is sedated. The patient has blood oozing from various indwelling catheter sites including the ones in the left inguinal area and left neck area. HEAD: Normocephalic. EYES: Normal reaction of pupils, equal size. NOSE: Clear with pink turbinates. THROAT: Oral endotracheal and gastric tube secured in place No erythema or exudates. NECK: No masses, no JVD. CHEST: No chest wall deformity. LUNGS: Equal air entry with bilateral coarse crackles. CVS: S1 and S2 normal with no audible murmur, regular rhythm. ABDOMEN: No hepatosplenomegaly, normal bowel sounds, no guarding or rigidity. SPINE: No scoliosis or deformity SKIN: No rashes CENTRAL NERVOUS SYSTEM: No focal deficits, tone is normal in all 4 extremities. EXTREMITIES: Impella has been removed. There is no peripheral edema. No clubbing, no cyanosis. Peripheral pulses are intact. - Labs CBC & Chem 7: 08/20/21 07:38 08/20/21 07:38 Labs: Abnormal Lab Results - Last 24 Hours (Table) 08/18/21 08/19/21 08/19/21 Range/Units 21:40 05:01 11:07 WBC (3.8-10.6) k/uL RBC (4.30-5.90) m/uL Hgb (13.0-17.5) gm/dL Hct (39.0-53.0) % Neutrophils # (1.3-7.7) k/uL APTT 43.1 H (22.0-30.0) sec ABG pH 7.48 H (7.35-7.45) ABG pCO2 34 L (35-45) mmHg ABG HCO3 (21-25) mmol/L ABG Total CO2 26 H (19-24) mmol/L ABG O2 Saturation (94-97) % Carbon Dioxide (22-30) mmol/L BUN (9-20) mg/dL Glucose (74-99) mg/dL POC Glucose (mg/dL) (75-99) mg/dL Calcium (8.4-10.2) mg/dL Lactate Dehydrogenase 4893 H (313-618) U/L 08/19/21 08/19/21 08/20/21 Range/Units 13:55 17:51 00:59 WBC (3.8-10.6) k/uL RBC (4.30-5.90) m/uL Hgb (13.0-17.5) gm/dL Hct (39.0-53.0) % Neutrophils # (1.3-7.7) k/uL APTT (22.0-30.0) sec ABG pH (7.35-7.45) ABG pCO2 (35-45) mmHg ABG HCO3 (21-25) mmol/L ABG Total CO2 (19-24) mmol/L ABG O2 Saturation (94-97) % Carbon Dioxide (22-30) mmol/L BUN (9-20) mg/dL Glucose (74-99) mg/dL POC Glucose (mg/dL) 146 H 154 H 130 H (75-99) mg/dL Calcium (8.4-10.2) mg/dL Lactate Dehydrogenase (313-618) U/L 08/20/21 08/20/21 08/20/21 Range/Units 05:31 05:53 07:38 WBC 17.3 H (3.8-10.6) k/uL RBC 3.86 L (4.30-5.90) m/uL Hgb 11.5 L (13.0-17.5) gm/dL Hct 36.0 L (39.0-53.0) % Neutrophils # 14.2 H (1.3-7.7) k/uL APTT (22.0-30.0) sec ABG pH 7.46 H (7.35-7.45) ABG pCO2 (35-45) mmHg ABG HCO3 29 H (21-25) mmol/L ABG Total CO2 30 H (19-24) mmol/L ABG O2 Saturation 97.3 H (94-97) % Carbon Dioxide (22-30) mmol/L BUN (9-20) mg/dL Glucose (74-99) mg/dL POC Glucose (mg/dL) 125 H (75-99) mg/dL Calcium (8.4-10.2) mg/dL Lactate Dehydrogenase (313-618) U/L 08/20/21 Range/Units 07:38 WBC (3.8-10.6) k/uL RBC (4.30-5.90) m/uL Hgb (13.0-17.5) gm/dL Hct (39.0-53.0) % Neutrophils # (1.3-7.7) k/uL APTT (22.0-30.0) sec ABG pH (7.35-7.45) ABG pCO2 (35-45) mmHg ABG HCO3 (21-25) mmol/L ABG Total CO2 (19-24) mmol/L ABG O2 Saturation (94-97) % Carbon Dioxide 32 H (22-30) mmol/L BUN 21 H (9-20) mg/dL Glucose 129 H (74-99) mg/dL POC Glucose (mg/dL) (75-99) mg/dL Calcium 8.2 L (8.4-10.2) mg/dL Lactate Dehydrogenase (313-618) U/L Microbiology - Last 24 Hours (Table) 08/18/21 19:05 Gram Stain - Final Sputum Sputum Culture - Final Assessment and Plan Assessment: Acute ST segment elevation myocardial infarction secondary to coronary artery disease, stents placed to the mid LAD, OM1 2. Aspiration thrombectomy the OM1. Placement of Impella. Postoperative day #2. He was taken back to the Nurse Clinician on 08/19/2021. Impella had been re-removed. Follow-up cardiac catheterizations revealed patent stents with improved clot burden. Remains on aspirin in Brilinta. Aggrastat and heparin discontinued. Ischemic cardiomyopathy with ejection fraction 40% Acute hypoxemic respiratory failure secondary to above and acute pulmonary edema requiring intubation mechanical ventilatory support Hypotension secondary to above currently on norepinephrine at 12 mcg/m, re covered and off pressors Symptoms of heartburn 1 week prior, plan was for outpatient stress test Morbid obesity History of hypertension Hyperlipidemia Diabetes mellitus Plan: The patient was seen and evaluated Chest x-ray, ABGs and labs reviewed Off pressors Plan is for sedation holiday Possible extubation this morning Continue diuretics Continue aspirin and Brilinta We will continue to follow and make further recommendations based on his clinical status I have personally seen and examined the patient, performed the documentation and the assessment and plan as written. Number of minutes spent on the visit: 15. I have personally seen and examined the patient and reviewed the documentation. I performed a joint evaluation with the nurse practitioner in this evaluation was done more than 35 minutes. I fully agree with the documentation above and the plan of care. On today's evaluation of 08/20/2021, the patient is hemodynamically stable. No signs of any bleeding. IV heparin has been discontinued. Aggrastat has been discontinued. Impella has been discontinued. The patient is currently on no pressors. The patient is producing adequate amount of urine output. The chest x-ray showing bilateral pleural effusion most on the right. Echo showed an ejection fraction of 40%. As such, we will going to give the patient sedation holiday, as has mental status, assessment weaning parameters and give the patient spelled his breathing trial and following that we'll decide if the patient will be able to extubate today. Reviewed the chest x-ray. Reviewed labs. Check a mechanical ventilator. Checked a blood gas. Overall fluid balance is been -642 mL over the past 24 hours. We'll continue to follow. Time with Patient: Greater than 30
[2021-08-20 12:19] LABS: Glucose,Whole Blood 135 mg/dL (75-99)
--- NOTE | 2021-08-20 12:24 | P.PN ---
Subjective Progress Note Date: 08/20/21 HISTORY OF PRESENT ILLNESS: 08/18/2021 Patient is a 60-year-old male who was brought to the hospital yesterday with a STEMI. Patient underwent cardiac catheterization, where stenting was completed to the mid LAD, OM1, aspiration thrombectomy from the OM1/LCx, successful placement of an Impella CP in the left ventricle. Patient was intubated prior to the procedure, remains intubated at this time. Patient remains on heparin, nitro, norepinephrine, propofol, and tirofiban. Secondary to cardiogenic shock and extremely elevated left-sided filling pressures, will start patient on Lasix 40 mg IV push twice a day. 08/19/2021 Patient seen and examined this morning at the bedside in the intensive care unit. Patient is status post cardiac catheterization with stenting of the mid LAD and OM1. Patient also underwent aspiration thrombectomy from the OM1/left circumflex. Patient also had placement of an Impella. Patient remains intubated and sedated. His is at the bedside. Per nursing, the patient's neuro status has remained intact. His vital signs have been stable. He is scheduled to return to the [facility] today with Dr. Morris for possible further intervention and removal of Impella. 08/20/2021 Patient examined this morning in the intensive care unit. Patient underwent removal of Impella yesterday. He was started on Eliquis for thrombus burden. Patient is also receiving aspirin and [place] to. He remains intubated. He is awake and alert following commands. Vasopressor support has been weaned off. Plan is for extubation later today. He is receiving IV Lasix 40 mg every 12 hours. Chest x-ray this morning reveals pulmonary edema, there may be basilar effusions and associated atelectasis. Difficult to exclude pneumonia. PHYSICAL EXAM: VITAL SIGNS: Reviewed. GENERAL: Well-developed in no acute distress. NECK: Supple. No JVD or thyromegaly LUNGS: Respirations even and unlabored. Lungs diminished to auscultation bilaterally. HEART: Regular rate and rhythm. S1 and S2 heard. EXTREMITIES: Normal range of motion. No clubbing or cyanosis. Peripheral pulses intact. Trace lower extremity edema ASSESSMENT: STEMI, s/p PCI of LAD and OM1 Cardiogenic shock requiring vasopressor support Acute hypoxic respiratory failure requiring mechanical ventilation History of hypertension Hyperlipidemia Diabetes PLAN: Continue current cardiac medications Discontinue IV fluids Continue IV Lasix 40 mg every 12 hours Monitor kidney function Further recommendation pending patient course Nurse practitioner note has been reviewed by physician. Signing provider agrees with the documented findings, assessment, and plan of care. Objective - Vital Signs Vital signs: Vital Signs Temp 98.8 F 08/20/21 12:00 Pulse 67 08/20/21 12:00 Resp 20 08/20/21 12:00 BP 93/56 08/20/21 12:00 Pulse Ox 96 08/20/21 12:00 Intake & Output 08/19/21 08/20/21 08/20/21 18:59 06:59 18:59 Intake Total 0254.156 8546.872 564.007 Output Total 1030 2060 1060 Balance 36.349 -679.128 -495.993 Weight 131.2 kg 127 kg Intake: IV 30 900 332 Sodium Chloride 0.9% 1, 900 320 000 ml @ 75 mls/hr IV . [id number] JESSY Rx#:[id number] pressure bags 30 12 Intake, IV Titration 1036.349 480.872 232.007 Amount Heparin Sod,Pork in 0.45% 74.688 NaCl 25,000 unit In 0.45 % NaCl 1 250ml.bag @ 5. 207 UNITS/KG/HR 6.849 mls /hr IV .Q24H JESSY Rx#: [id number] Norepinephrine 4 mg In 214.270 132.007 Sodium Chloride 0.9% 250 ml @ 0.24 MCG/KG/MIN 120. 282 mls/hr IV .Q2H7M JESSY Rx#:[id number] Sodium Chloride 0.9% 1, 600 000 ml @ 75 mls/hr IV . [id number] JESSY Rx#:[id number] propofoL 1,000 mg In 147.391 480.872 100 Empty Bag 1 bag @ 5 MCG/ KG/MIN 3.946 mls/hr IV . Q24H JESSY Rx#:[id number] Output: Urine 1030 2060 1060 Other: Voiding Method Indwelling Catheter Indwelling Catheter Indwelling Catheter ABP, PAP, CO, CI - Last Documented Arterial Blood Pressure 107/61 - Labs CBC & Chem 7: 08/20/21 07:38 08/20/21 07:38 Labs: Abnormal Lab Results - Last 24 Hours (Table) 08/18/21 08/19/21 08/19/21 Range/Units 21:40 05:01 11:07 WBC (3.8-10.6) k/uL RBC (4.30-5.90) m/uL Hgb (13.0-17.5) gm/dL Hct (39.0-53.0) % Neutrophils # (1.3-7.7) k/uL APTT 43.1 H (22.0-30.0) sec ABG pH 7.48 H (7.35-7.45) ABG pCO2 34 L (35-45) mmHg ABG HCO3 (21-25) mmol/L ABG Total CO2 26 H (19-24) mmol/L ABG O2 Saturation (94-97) % Carbon Dioxide (22-30) mmol/L BUN (9-20) mg/dL Glucose (74-99) mg/dL POC Glucose (mg/dL) (75-99) mg/dL Calcium (8.4-10.2) mg/dL Lactate Dehydrogenase 4893 H (313-618) U/L 08/19/21 08/19/21 08/20/21 Range/Units 13:55 17:51 00:59 WBC (3.8-10.6) k/uL RBC (4.30-5.90) m/uL Hgb (13.0-17.5) gm/dL Hct (39.0-53.0) % Neutrophils # (1.3-7.7) k/uL APTT (22.0-30.0) sec ABG pH (7.35-7.45) ABG pCO2 (35-45) mmHg ABG HCO3 (21-25) mmol/L ABG Total CO2 (19-24) mmol/L ABG O2 Saturation (94-97) % Carbon Dioxide (22-30) mmol/L BUN (9-20) mg/dL Glucose (74-99) mg/dL POC Glucose (mg/dL) 146 H 154 H 130 H (75-99) mg/dL Calcium (8.4-10.2) mg/dL Lactate Dehydrogenase (313-618) U/L 08/20/21 08/20/21 08/20/21 Range/Units 05:31 05:53 07:38 WBC 17.3 H (3.8-10.6) k/uL RBC 3.86 L (4.30-5.90) m/uL Hgb 11.5 L (13.0-17.5) gm/dL Hct 36.0 L (39.0-53.0) % Neutrophils # 14.2 H (1.3-7.7) k/uL APTT (22.0-30.0) sec ABG pH 7.46 H (7.35-7.45) ABG pCO2 (35-45) mmHg ABG HCO3 29 H (21-25) mmol/L ABG Total CO2 30 H (19-24) mmol/L ABG O2 Saturation 97.3 H (94-97) % Carbon Dioxide (22-30) mmol/L BUN (9-20) mg/dL Glucose (74-99) mg/dL POC Glucose (mg/dL) 125 H (75-99) mg/dL Calcium (8.4-10.2) mg/dL Lactate Dehydrogenase (313-618) U/L 08/20/21 08/20/21 Range/Units 07:38 12:18 WBC (3.8-10.6) k/uL RBC (4.30-5.90) m/uL Hgb (13.0-17.5) gm/dL Hct (39.0-53.0) % Neutrophils # (1.3-7.7) k/uL APTT (22.0-30.0) sec ABG pH (7.35-7.45) ABG pCO2 (35-45) mmHg ABG HCO3 (21-25) mmol/L ABG Total CO2 (19-24) mmol/L ABG O2 Saturation (94-97) % Carbon Dioxide 32 H (22-30) mmol/L BUN 21 H (9-20) mg/dL Glucose 129 H (74-99) mg/dL POC Glucose (mg/dL) 135 H (75-99) mg/dL Calcium 8.2 L (8.4-10.2) mg/dL Lactate Dehydrogenase (313-618) U/L Microbiology - Last 24 Hours (Table) 08/18/21 19:05 Gram Stain - Final Sputum Sputum Culture - Final
--- NOTE | 2021-08-20 13:15 | P.PN ---
Subjective Progress Note Date: 08/20/21 Pt intubated, Impella removed, no need for pressors. Gen: Intubated, sedated HEENT: normocephalic, atraumatic,moist mucous membranes Resp: Intubated, vent before meals 500, FiO2 40%, PEEP 5 CVS: good distal perfusion x 4, tachycardic GI: soft, NTTP, ND : no SPT, no CVAT, hu catheter is present MSK: + pitting edema, no clubbing Assessment/plan: STEMI -Admit to inpatient, ICU, telemetry -Aspirin, brillinta, statin -Currently on Aggrastat -Impala per cardiology -Levo fed as needed -Cardiology, pulmonary consultation appreciated -Nitro drip as needed -Morphine as needed Hypertension Hyperlipidemia Diabetes type 2 Obesity -Home medications reviewed and reconciled Pt is Full Code Objective - Vital Signs Vital signs: Vital Signs Temp 98.8 F 08/20/21 12:00 Pulse 67 08/20/21 12:00 Resp 20 08/20/21 12:00 BP 93/56 08/20/21 12:00 Pulse Ox 96 08/20/21 12:00 Intake & Output 08/19/21 08/20/21 08/20/21 18:59 06:59 18:59 Intake Total 7473.555 3341.872 587.007 Output Total 1030 2060 1100 Balance 36.349 -679.128 -512.993 Weight 131.2 kg 127 kg Intake: IV 30 900 355 Sodium Chloride 0.9% 1, 900 340 000 ml @ 75 mls/hr IV . [id number] JESSY Rx#:[id number] pressure bags 30 15 Intake, IV Titration 1036.349 480.872 232.007 Amount Heparin Sod,Pork in 0.45% 74.688 NaCl 25,000 unit In 0.45 % NaCl 1 250ml.bag @ 5. 207 UNITS/KG/HR 6.849 mls /hr IV .Q24H JESSY Rx#: [id number] Norepinephrine 4 mg In 214.270 132.007 Sodium Chloride 0.9% 250 ml @ 0.24 MCG/KG/MIN 120. 282 mls/hr IV .Q2H7M JESSY Rx#:[id number] Sodium Chloride 0.9% 1, 600 000 ml @ 75 mls/hr IV . [id number] JESSY Rx#:[id number] propofoL 1,000 mg In 147.391 480.872 100 Empty Bag 1 bag @ 5 MCG/ KG/MIN 3.946 mls/hr IV . Q24H JESSY Rx#:[id number] Output: Urine 1030 2060 1100 Other: Voiding Method Indwelling Catheter Indwelling Catheter Indwelling Catheter ABP, PAP, CO, CI - Last Documented Arterial Blood Pressure 107/61 - Labs CBC & Chem 7: 08/20/21 07:38 08/20/21 07:38 Labs: Abnormal Lab Results - Last 24 Hours (Table) 08/18/21 08/19/21 08/19/21 Range/Units 21:40 05:01 13:55 WBC (3.8-10.6) k/uL RBC (4.30-5.90) m/uL Hgb (13.0-17.5) gm/dL Hct (39.0-53.0) % Neutrophils # (1.3-7.7) k/uL ABG pH 7.48 H (7.35-7.45) ABG pCO2 34 L (35-45) mmHg ABG HCO3 (21-25) mmol/L ABG Total CO2 26 H (19-24) mmol/L ABG O2 Saturation (94-97) % Carbon Dioxide (22-30) mmol/L BUN (9-20) mg/dL Glucose (74-99) mg/dL POC Glucose (mg/dL) 146 H (75-99) mg/dL Calcium (8.4-10.2) mg/dL Lactate Dehydrogenase 4893 H (313-618) U/L 08/19/21 08/20/21 08/20/21 Range/Units 17:51 00:59 05:31 WBC (3.8-10.6) k/uL RBC (4.30-5.90) m/uL Hgb (13.0-17.5) gm/dL Hct (39.0-53.0) % Neutrophils # (1.3-7.7) k/uL ABG pH 7.46 H (7.35-7.45) ABG pCO2 (35-45) mmHg ABG HCO3 29 H (21-25) mmol/L ABG Total CO2 30 H (19-24) mmol/L ABG O2 Saturation 97.3 H (94-97) % Carbon Dioxide (22-30) mmol/L BUN (9-20) mg/dL Glucose (74-99) mg/dL POC Glucose (mg/dL) 154 H 130 H (75-99) mg/dL Calcium (8.4-10.2) mg/dL Lactate Dehydrogenase (313-618) U/L 08/20/21 08/20/21 08/20/21 Range/Units 05:53 07:38 07:38 WBC 17.3 H (3.8-10.6) k/uL RBC 3.86 L (4.30-5.90) m/uL Hgb 11.5 L (13.0-17.5) gm/dL Hct 36.0 L (39.0-53.0) % Neutrophils # 14.2 H (1.3-7.7) k/uL ABG pH (7.35-7.45) ABG pCO2 (35-45) mmHg ABG HCO3 (21-25) mmol/L ABG Total CO2 (19-24) mmol/L ABG O2 Saturation (94-97) % Carbon Dioxide 32 H (22-30) mmol/L BUN 21 H (9-20) mg/dL Glucose 129 H (74-99) mg/dL POC Glucose (mg/dL) 125 H (75-99) mg/dL Calcium 8.2 L (8.4-10.2) mg/dL Lactate Dehydrogenase (313-618) U/L 08/20/21 Range/Units 12:18 WBC (3.8-10.6) k/uL RBC (4.30-5.90) m/uL Hgb (13.0-17.5) gm/dL Hct (39.0-53.0) % Neutrophils # (1.3-7.7) k/uL ABG pH (7.35-7.45) ABG pCO2 (35-45) mmHg ABG HCO3 (21-25) mmol/L ABG Total CO2 (19-24) mmol/L ABG O2 Saturation (94-97) % Carbon Dioxide (22-30) mmol/L BUN (9-20) mg/dL Glucose (74-99) mg/dL POC Glucose (mg/dL) 135 H (75-99) mg/dL Calcium (8.4-10.2) mg/dL Lactate Dehydrogenase (313-618) U/L Microbiology - Last 24 Hours (Table) 08/18/21 19:05 Gram Stain - Final Sputum Sputum Culture - Final
[2021-08-20 18:50] LABS: Glucose,Whole Blood 123 mg/dL (75-99)
[2021-08-20] MEDS: ATORVASTATIN 80 MG TAB PO SCH (21:20)
[2021-08-20 23:52] LABS: Glucose,Whole Blood 148 mg/dL (75-99)
[2021-08-21] MEDS: INSULIN ASPART (NovoLOG) 100 UNIT/ML VIAL SQ SCH ×5 (00:37→21:02)
[2021-08-21] MEDS: SODIUM CHLORIDE 0.9% 1,000 ML IV SCH ×2 (00:39→21:28)
[2021-08-21 05:40] LABS: Glucose,Whole Blood 135 mg/dL (75-99)
[2021-08-21 05:55] LABS: Basophils # (A) 0.1 k/uL (0-0.2); Basophils % (A) 0 %; Eosinophils # (A) 0.1 k/uL (0-0.7); Eosinophils % (A) 1 %; HCT 33.8 % (39.0-53.0); Lymphocytes # (A) 1.4 k/uL (1.0-4.8); Lymphocytes % (A) 8 %; MCH 29.8 pg (25.0-35.0); MCHC 32.4 g/dL (31.0-37.0); MCV 91.8 fL (80.0-100.0); Mean Platelet Volume 8.7; Monocytes # (A) 0.9 k/uL (0-1.0); Monocytes % (A) 5 %; Neutrophils # (A) 14.4 k/uL (1.3-7.7); Neutrophils % (A) 84 %; Platelet Count 246 k/uL (150-450); RBC 3.68 m/uL (4.30-5.90); RDW 13.6 % (11.5-15.5); WBC 17.1 k/uL (3.8-10.6)
[2021-08-21 06:10] LABS: Calcium 8.4 mg/dL (8.4-10.2); Potassium 3.8 mmol/L (3.5-5.1)
--- NOTE | 2021-08-21 07:57 | XR ---
EXAMINATION TYPE: XR chest 1V portable DATE OF EXAM: 08/21/2021 COMPARISON: Chest x-ray 08/20/2021 HISTORY: Extubated, abnormal chest x-ray TECHNIQUE: Single frontal view of the chest is obtained. FINDINGS: Endotracheal and NG tubes have been removed. No evident pneumothorax. Patchy basilar densi ty is present, there is interval improved visualization of the left hemidiaphragm and portion of the right hemidiaphragm, persistent blunting the costophrenic angles. Cardiac mediastinal silhouette is u nchanged, heart is enlarged. Left subclavian central venous catheter is stable. IMPRESSION: Some improvement in aeration. Small pleural effusions.
[2021-08-21] MEDS: TICAGRELOR 90 MG TAB PO SCH ×2 (08:29→21:25)
[2021-08-21] MEDS: ASPIRIN 81 MG PO SCH (08:29)
[2021-08-21] MEDS: APIXABAN 2.5 MG TABLET PO SCH ×2 (08:29→21:25)
[2021-08-21] MEDS: FUROSEMIDE 10 MG/ML 4 ML VIAL IV SCH ×2 (08:29→21:25)
--- NOTE | 2021-08-21 10:26 | P.PN ---
Subjective Progress Note Date: 08/21/21 This is a 60-year-old male patient with a history of diabetes mellitus, hyperlipidemia, hypertension, obesity, possible medication noncompliance was brought in to the emergency room via EMS for an acute ST segment elevation myocardial infarction, acute pulmonary edema with acute respiratory failure. Apparently he had been having complaints of recurrent heartburn for 1 week prior, seen his primary care provider was treated with oral medications and scheduled for a stress test August 23. He was intubated in the emergency room for acute hypoxemic respiratory failure. He was taken urgently to the cardiac laboratory phlebotomist and had stents placed to the mid LAD, OM 12, aspiration thrombectomy of the OM1. Impella was placed. He was admitted to the intensive care unit where he is seen today in consultation. He remains intubated on the mechanical ventilator. Currently on assist control mode with a rate of 22, tidal volume 500, FiO2 60% and a PEEP of 5. Morning blood gases revealed a PaO2 of 373, P CO2 of 38 and a pH of 7.33. This was on 90% FiO2 and subsequently decreased to 40% FiO2. He is sedated on propofol at 45 mcg/kg/m. Heparin drip per weight- based protocol. Aggrastat at 0.15 mcg/kg/m. He is on norepinephrine at 12 mcg/m. Normal saline at 75 ML's per hour. White count 27.5. Hemoglobin 14.3. Platelets 373. Fibrinogen 532. Sodium 135. Potassium 5.4. Chloride 108. Bicarb 19. BUN 20. Creatinine 1.21. Glucose 210. TSH 0.601. Cortisol level XXII. A ST to 11. ALT 73. Troponin 5.44. ProBNP 1150. He's been initiated on Lasix 40 mg IV every 12 hours. Brilinta, aspirin, statins. Chest x-ray reveals multifocal airspace opacities, pulmonary vascular congestion. [place] rdiogram pending. The patient is seen today 08/20/2021 in follow-up in the intensive care unit. H e remains intubated on a mechanical ventilator with current settings of assist control mode with a rate of 22, tidal volume 450, FiO2 40% and a PEEP of 5. Morning blood gases revealed a PaO2 of 87, pCO2 40 and a pH of 7.46. Chest x- ray revealed continued evidence of pulmonary edema with some basilar effusion and associated atelectasis. White count 17.3. Hemoglobin 11.5. Platelets 231. Sodium 138. Potassium 4.0. BUN 21. Creatinine 1.10. Glucose 129. He is sedated with propofol at 20 mcg/kg/m. Off pressors. Remains on IV Lasix at 40 mg every 12 hours. Currently in a -477 mL balance. Anticoagulated with Eliquis. Aggrastat and heparin drips were discontinued yesterday as the patient did have oozing at his puncture sites and blood-tinged urine. He did undergo follow-up cardiac catheterization yesterday and removal of the Impella from the left ventricle. Noted patent stents in the left circumflex and resolving of large thrombus. Patent stents in the mid LAD with thrombus burden involving the diagonal but not the LAD itself. He is continued on Brilinta and aspirin. The patient is seen today 08/21/2021 follow-up in the intensive care unit. He is doing very well. He was successfully extubated yesterday. He is currently sitting up in a chair at the bedside. Maintaining O2 saturations in the 90s on room air. He denies any worsening shortness of breath, cough or congestion. He denies any chest pain or palpitations. Sputum culture revealed no growth. White count 17.1. Hemoglobin 11.0. Platelet count 246. Sodium 138. Potassium 3.8. Bicarb 31. BUN 23. Creatinine 1.15. Glucose 132. Yesterday he did have ongoing issues with hematuria. His Bowling catheter was changed out. His urine is clear today. He is diuresing well. Currently in a -2.3 L balance. He remains on Lasix 40 mg IV every 12 hours. He is anticoagulated with Eliquis. He is continued on aspirin, statins and Brilinta. Objective - Vital Signs Vital signs: Vital Signs Temp 98.2 F 08/21/21 08:00 Pulse 80 08/21/21 10:10 Resp 21 08/21/21 10:10 BP 116/97 08/21/21 10:10 Pulse Ox 94 L 08/21/21 10:10 Intake & Output 08/20/21 08/21/21 08/21/21 18:59 06:59 18:59 Intake Total 728.007 654 160 Output Total 1610 2107 975 Balance -881.993 -1453 -815 Intake: IV 496 62 40 Sodium Chloride 0.9% 1, 20 000 ml @ 20 mls/hr IV . Q24H JESSY Rx#:[id number] Sodium Chloride 0.9% 1, 460 20 20 000 ml @ 75 mls/hr IV . [id number] JESSY Rx#:[id number] pressure bags 36 42 Intake, IV Titration 232.007 Amount Norepinephrine 4 mg In 132.007 Sodium Chloride 0.9% 250 ml @ 0.24 MCG/KG/MIN 120. 282 mls/hr IV .Q2H7M JESSY Rx#:[id number] propofoL 1,000 mg In 100 Empty Bag 1 bag @ 5 MCG/ KG/MIN 3.946 mls/hr IV . Q24H JESSY Rx#:[id number] Oral 592 120 Output: Urine 1610 2107 975 Other: Voiding Method Indwelling Catheter Indwelling Catheter Indwelling Catheter # Bowel Movements 1 1 ABP, PAP, CO, CI - Last Documented Arterial Blood Pressure 107/61 - Exam GENERAL EXAM: Awake, alert and oriented 60-year-old obese male patient, sitting up in a chair at the bedside. On room air. HEAD: Normocephalic. EYES: Normal reaction of pupils, equal size. NOSE: Clear with pink turbinates. THROAT: Oral endotracheal and gastric tube secured in place No erythema or exudates. NECK: No masses, no JVD. CHEST: No chest wall deformity. Left IJ triple-lumen catheter in place. LUNGS: Equal air entry with bilateral coarse crackles. CVS: S1 and S2 normal with no audible murmur, regular rhythm. ABDOMEN: No hepatosplenomegaly, normal bowel sounds, no guarding or rigidity. SPINE: No scoliosis or deformity SKIN: No rashes CENTRAL NERVOUS SYSTEM: No focal deficits, tone is normal in all 4 extremities. EXTREMITIES: Impella has been removed. There is no peripheral edema. No clubbing, no cyanosis. Peripheral pulses are intact. - Labs CBC & Chem 7: 08/21/21 05:28 08/21/21 05:28 Labs: Abnormal Lab Results - Last 24 Hours (Table) 08/20/21 08/20/21 08/20/21 Range/Units 12:18 18:49 23:50 WBC (3.8-10.6) k/uL RBC (4.30-5.90) m/uL Hgb (13.0-17.5) gm/dL Hct (39.0-53.0) % Neutrophils # (1.3-7.7) k/uL Carbon Dioxide (22-30) mmol/L BUN (9-20) mg/dL Glucose (74-99) mg/dL POC Glucose (mg/dL) 135 H 123 H 148 H (75-99) mg/dL 08/21/21 08/21/21 08/21/21 Range/Units 05:28 05:28 05:38 WBC 17.1 H (3.8-10.6) k/uL RBC 3.68 L (4.30-5.90) m/uL Hgb 11.0 L (13.0-17.5) gm/dL Hct 33.8 L (39.0-53.0) % Neutrophils # 14.4 H (1.3-7.7) k/uL Carbon Dioxide 31 H (22-30) mmol/L BUN 23 H (9-20) mg/dL Glucose 132 H (74-99) mg/dL POC Glucose (mg/dL) 135 H (75-99) mg/dL Microbiology - Last 24 Hours (Table) 08/18/21 19:05 Gram Stain - Final Sputum Sputum Culture - Final Assessment and Plan Assessment: Acute ST segment elevation myocardial infarction secondary to coronary artery disease, stents placed to the mid LAD, OM1 2. Aspiration thrombectomy the OM1. Placement of Impella. Postoperative day #3. He was taken back to the [employer] on 08/19/2021. Impella had been re-removed. Follow-up cardiac catheterizations revealed patent stents with improved clot burden. Remains on aspirin and Brilinta. Aggrastat and heparin discontinued. Ischemic cardiomyopathy with ejection fraction 40% Acute hypoxemic respiratory failure secondary to above and acute pulmonary edema requiring intubation mechanical ventilatory support, successfully extubated on 08/21/2021. Currently on room air. Hypotension secondary to above currently on norepinephrine at 12 mcg/m, recove red and off pressors Symptoms of heartburn 1 week prior, plan was for outpatient stress test 2021 Morbid obesity History of hypertension Hyperlipidemia Diabetes mellitus Hematuria, resolved Plan: The patient was seen and evaluated Chest x-ray, medication and labs reviewed Continue diuretics Continue aspirin and Brilinta Discontinue triple-lumen catheter Cleared for transfer to the selective care unit We will continue to follow I have personally seen and examined the patient, performed the documentation and the assessment and plan as written. Number of minutes spent on the visit: 10. I have personally seen and examined the patient and reviewed the documentation. I performed a joint evaluation with the nurse practitioner in this evaluation was done more than 20 minutes. I fully agree with the documentation above and the plan of care. The patient is doing extremely well. The patient has been extubated yesterday and the patient is currently on room air oxygen. the patient continues to have some small bilateral pleural effusion and the patient remains on IV Lasix. The patient is hemodynamically stable on no pressors. the patient remains on aspirin number: 2. The patient remains on Lasix 40 mg every 12 hours. The patient is a negative fluid balance. The patient is free of any chest pain. Creatinine is at 1.1. Rest of the electrodes are normal. The pat ient will likely leave the intensive care unit today.
[2021-08-21 12:03] LABS: Glucose,Whole Blood 131 mg/dL (75-99)
--- NOTE | 2021-08-21 12:25 | PN ---
PROGRESS NOTE FOLLOW-UP NOTE: José is a 60-year-old gentleman who was admitted to hospital with acute myocardial infarction and underwent cardiac catheterization, angioplasty of mid LAD, aspiration thrombectomy of circumflex coronary artery. Patient was in cardiogenic shock, was intubated on vent, was extubated yesterday. At the time of my evaluation he appears comfortable at rest. Heart rate is 85 beats per minute. Blood pressure is 122/72, respiratory rate is 18. Chest exam reveals diminished air entry bilaterally. Heart exam reveals first and second heart sounds. No gallop. Examination of extremities reveals mild edema. Labs show a hemoglobin of 11. Potassium is 3. Creatinine is 1.1. Patient is currently on Eliquis, aspirin, Lipitor, Lasix 40 mg IV q.12. I am adding Toprol-XL and losartan 25 mg daily. He is also on Brilinta 90 b.i.d. ASSESSMENT: 1. Acute myocardial infarction with cardiogenic shock. 2. Ischemic cardiomyopathy. 3. Acute systolic heart failure. PLAN: We can transfer the patient to [facility]. Continue current medications. Add beta blockers and KOFI inhibitors. Ambulate him. Hopefully home over the next 48 hours. MMODL / IJN: [id number] /
[2021-08-21] MEDS: METOPROLOL SUCCINATE (ER) 25 MG TAB.ER.24H PO SCH (13:21)
--- NOTE | 2021-08-21 13:57 | P.PN ---
Subjective Progress Note Date: 08/21/21 Pt extubated and doing well. Has appetite. No pain. Hu still in place. Gen: Intubated, sedated HEENT: normocephalic, atraumatic,moist mucous membranes Resp: Intubated, vent before meals 500, FiO2 40%, PEEP 5 CVS: good distal perfusion x 4, tachycardic GI: soft, NTTP, ND : no SPT, no CVAT, hu catheter is present MSK: + pitting edema, no clubbing Assessment/plan: STEMI -Admit to inpatient, ICU, telemetry -Aspirin, brillinta, statin -Currently on Aggrastat -Imprella removed -Cardiology, pulmonary consultation appreciated -Nitro drip as needed, currently off -Morphine as needed, currently off -remove hu today -transfer to the floor 08/21 with likely d/c plan tomorrow Hypertension Hyperlipidemia Diabetes type 2 Obesity -Home medications reviewed and reconciled Pt is Full Code Objective - Vital Signs Vital signs: Vital Signs Temp 98.2 F 08/21/21 12:10 Pulse 92 08/21/21 13:10 Resp 28 H 08/21/21 13:10 BP 126/80 08/21/21 13:10 Pulse Ox 94 L 08/21/21 13:10 Intake & Output 08/20/21 08/21/21 08/21/21 18:59 06:59 18:59 Intake Total 728.007 654 160 Output Total 1610 2107 1225 Balance -881.993 -5233 -1065 Intake: IV 496 62 40 Sodium Chloride 0.9% 1, 20 000 ml @ 20 mls/hr IV . Q24H JESSY Rx#:[id number] Sodium Chloride 0.9% 1, 460 20 20 000 ml @ 75 mls/hr IV . [id number] JESSY Rx#:[id number] pressure bags 36 42 Intake, IV Titration 232.007 Amount Norepinephrine 4 mg In 132.007 Sodium Chloride 0.9% 250 ml @ 0.24 MCG/KG/MIN 120. 282 mls/hr IV .Q2H7M JESSY Rx#:[id number] propofoL 1,000 mg In 100 Empty Bag 1 bag @ 5 MCG/ KG/MIN 3.946 mls/hr IV . Q24H JESSY Rx#:[id number] Oral 592 120 Output: Urine 1610 2107 1225 Other: Voiding Method Indwelling Catheter Indwelling Catheter Indwelling Catheter # Bowel Movements 1 1 ABP, PAP, CO, CI - Last Documented Arterial Blood Pressure 107/61 - Labs CBC & Chem 7: 08/21/21 05:28 08/21/21 05:28 Labs: Abnormal Lab Results - Last 24 Hours (Table) 08/20/21 08/20/21 08/21/21 Range/Units 18:49 23:50 05:28 WBC 17.1 H (3.8-10.6) k/uL RBC 3.68 L (4.30-5.90) m/uL Hgb 11.0 L (13.0-17.5) gm/dL Hct 33.8 L (39.0-53.0) % Neutrophils # 14.4 H (1.3-7.7) k/uL Carbon Dioxide (22-30) mmol/L BUN (9-20) mg/dL Glucose (74-99) mg/dL POC Glucose (mg/dL) 123 H 148 H (75-99) mg/dL 08/21/21 08/21/21 08/21/21 Range/Units 05:28 05:38 12:02 WBC (3.8-10.6) k/uL RBC (4.30-5.90) m/uL Hgb (13.0-17.5) gm/dL Hct (39.0-53.0) % Neutrophils # (1.3-7.7) k/uL Carbon Dioxide 31 H (22-30) mmol/L BUN 23 H (9-20) mg/dL Glucose 132 H (74-99) mg/dL POC Glucose (mg/dL) 135 H 131 H (75-99) mg/dL Microbiology - Last 24 Hours (Table) 08/18/21 19:05 Gram Stain - Final Sputum Sputum Culture - Final
[2021-08-21] MEDS: LOSARTAN 25 MG TAB PO SCH (15:59)
[2021-08-21] MEDS: ATORVASTATIN 80 MG TAB PO SCH (21:25)
[2021-08-22 00:07] LABS: Glucose,Whole Blood 136 mg/dL (75-99)
[2021-08-22 05:51] LABS: Glucose,Whole Blood 134 mg/dL (75-99)
[2021-08-22] MEDS: INSULIN ASPART (NovoLOG) 100 UNIT/ML VIAL SQ SCH ×2 (09:22→12:03)
[2021-08-22] MEDS: ASPIRIN 81 MG PO SCH (09:37)
[2021-08-22] MEDS: APIXABAN 2.5 MG TABLET PO SCH (09:37)
[2021-08-22] MEDS: FUROSEMIDE 10 MG/ML 4 ML VIAL IV SCH (09:37)
[2021-08-22] MEDS: METOPROLOL SUCCINATE (ER) 25 MG TAB.ER.24H PO SCH (09:37)
[2021-08-22] MEDS: LOSARTAN 25 MG TAB PO SCH (09:37)
[2021-08-22] MEDS: TICAGRELOR 90 MG TAB PO SCH (09:38)
[2021-08-22] MEDS ORDERED: FUROSEMIDE 10 MG/ML 4 ML VIAL IV SCH (10:15)
[2021-08-22 10:25] LABS: Basophils # (A) 0.1 k/uL (0-0.2); Basophils % (A) 0 %; Eosinophils # (A) 0.3 k/uL (0-0.7); Eosinophils % (A) 2 %; HCT 38.3 % (39.0-53.0); HGB 12.3 gm/dL (13.0-17.5); Lymphocytes # (A) 1.6 k/uL (1.0-4.8); Lymphocytes % (A) 9 %; MCH 29.6 pg (25.0-35.0); MCHC 32.1 g/dL (31.0-37.0); Mean Platelet Volume 8.6; Monocytes # (A) 0.9 k/uL (0-1.0); Monocytes % (A) 5 %; Neutrophils # (A) 14.3 k/uL (1.3-7.7); Neutrophils % (A) 81 %; Platelet Count 346 k/uL (150-450); RBC 4.17 m/uL (4.30-5.90); RDW 13.3 % (11.5-15.5); WBC 17.5 k/uL (3.8-10.6)
[2021-08-22 10:46] LABS: African American GFR (CKD) >90 (>60 ml/min/1.73 sqM); Anion Gap 10 mmol/L; Blood Urea Nitrogen 23 mg/dL (9-20); Calcium 9.1 mg/dL (8.4-10.2); Carbon Dioxide 28 mmol/L (22-30); Chloride 96 mmol/L (98-107); Glucose 165 mg/dL (74-99); Non-African American GFR(CKD) 78 (>60 ml/min/1.73 sqM); Potassium 3.6 mmol/L (3.5-5.1); Sodium 134 mmol/L (137-145)
[2021-08-22 11:02] VITALS: BMI 38.0
[2021-08-22 11:50] LABS: Glucose,Whole Blood 135 mg/dL (75-99)
--- NOTE | 2021-08-22 12:07 | P.PN ---
Subjective Progress Note Date: 08/22/21 HISTORY OF PRESENT ILLNESS: 08/18/2021 Patient is a 60-year-old male who was brought to the hospital yesterday with a STEMI. Patient underwent cardiac catheterization, where stenting was completed to the mid LAD, OM1, aspiration thrombectomy from the OM1/LCx, successful placement of an Impella CP in the left ventricle. Patient was intubated prior to the procedure, remains intubated at this time. Patient remains on heparin, nitro, norepinephrine, propofol, and tirofiban. Secondary to cardiogenic shock and extremely elevated left-sided filling pressures, will start patient on Lasix 40 mg IV push twice a day. 08/19/2021 Patient seen and examined this morning at the bedside in the intensive care unit. Patient is status post cardiac catheterization with stenting of the mid LAD and OM1. Patient also underwent aspiration thrombectomy from the OM1/left circumflex. Patient also had placement of an Impella. Patient remains intubated and sedated. His is at the bedside. Per nursing, the patient's neuro status has remained intact. His vital signs have been stable. He is scheduled to return to the [employer] today with Dr. Morris for possible further intervention and removal of Impella. 08/20/2021 Patient examined this morning in the intensive care unit. Patient underwent removal of Impella yesterday. He was started on Eliquis for thrombus burden. Patient is also receiving aspirin and [place] to. He remains intubated. He is awake and alert following commands. Vasopressor support has been weaned off. Plan is for extubation later today. He is receiving IV Lasix 40 mg every 12 hours. Chest x-ray this morning reveals pulmonary edema, there may be basilar effusions and associated atelectasis. Difficult to exclude pneumonia. 08/22/2021 Patient examined this morning at the bedside. Patient has been transferred out of the intensive care unit. Patient denies chest pain or pressure. He denies shortness of breath. He remains on IV Lasix. Vital signs are stable. Patient is very eager to be discharged home today. PHYSICAL EXAM: VITAL SIGNS: Reviewed. GENERAL: Well-developed in no acute distress. NECK: Supple. No JVD or thyromegaly LUNGS: Respirations even and unlabored. Lungs diminished to auscultation bilaterally. HEART: Regular rate and rhythm. S1 and S2 heard. EXTREMITIES: Normal range of motion. No clubbing or cyanosis. Peripheral pulses intact. Trace lower extremity edema ASSESSMENT: STEMI, s/p PCI of LAD and OM1 Cardiogenic shock requiring vasopressor support Acute hypoxic respiratory failure requiring mechanical ventilation History of hypertension Hyperlipidemia Diabetes PLAN: Continue current cardiac medications Discontinue IV Lasix. Begin oral Lasix 40 mg by mouth twice a day Monitor kidney function Further recommendations pending patient course Patient may be discharged home this afternoon from a cardiac standpoint. Nurse practitioner note has been reviewed by physician. Signing provider agrees with the documented findings, assessment, and plan of care. Objective - Vital Signs Vital signs: Vital Signs Temp 97.9 F 08/22/21 08:00 Pulse 87 08/22/21 08:00 Resp 16 08/22/21 08:00 BP 124/59 08/22/21 08:00 Pulse Ox 95 08/22/21 08:00 Intake & Output 08/21/21 08/22/21 08/22/21 18:59 06:59 18:59 Intake Total 410 120 Output Total 2695 1850 Balance -2285 -1850 120 Weight 127 kg Intake: IV 40 Sodium Chloride 0.9% 1, 20 000 ml @ 20 mls/hr IV . Q24H JESSY Rx#:[id number] Sodium Chloride 0.9% 1, 20 000 ml @ 75 mls/hr IV . [id number] JESSY Rx#:[id number] Oral 370 120 Output: Urine 2695 1850 Other: Voiding Method Indwelling Catheter Indwelling Catheter Toilet # Bowel Movements 1 ABP, PAP, CO, CI - Last Documented Arterial Blood Pressure 107/61 - Labs CBC & Chem 7: 08/22/21 10:03 08/22/21 10:03 Labs: Abnormal Lab Results - Last 24 Hours (Table) 08/22/21 08/22/21 08/22/21 Range/Units 00:05 05:50 10:03 WBC 17.5 H (3.8-10.6) k/uL RBC 4.17 L (4.30-5.90) m/uL Hgb 12.3 L (13.0-17.5) gm/dL Hct 38.3 L (39.0-53.0) % Neutrophils # 14.3 H (1.3-7.7) k/uL Sodium (137-145) mmol/L Chloride (98-107) mmol/L BUN (9-20) mg/dL Glucose (74-99) mg/dL POC Glucose (mg/dL) 136 H 134 H (75-99) mg/dL 08/22/21 08/22/21 Range/Units 10:03 11:48 WBC (3.8-10.6) k/uL RBC (4.30-5.90) m/uL Hgb (13.0-17.5) gm/dL Hct (39.0-53.0) % Neutrophils # (1.3-7.7) k/uL Sodium 134 L (137-145) mmol/L Chloride 96 L (98-107) mmol/L BUN 23 H (9-20) mg/dL Glucose 165 H (74-99) mg/dL POC Glucose (mg/dL) 135 H (75-99) mg/dL
[2021-08-22 13:09] VITALS: BP 122/72; PULSE 79; RESP 18; TEMP 98.2
[2021-08-22] MEDS ORDERED: FUROSEMIDE 40 MG TAB PO SCH (16:00)
--- NOTE | 2021-08-22 16:37 | P.PN ---
Subjective Progress Note Date: 08/22/21 This is a 60-year-old male patient with a history of diabetes mellitus, hyperlipidemia, hypertension, obesity, possible medication noncompliance was brought in to the emergency room via EMS for an acute ST segment elevation myocardial infarction, acute pulmonary edema with acute respiratory failure. Apparently he had been having complaints of recurrent heartburn for 1 week prior, seen his primary care provider was treated with oral medications and scheduled for a stress test August 23. He was intubated in the emergency room for acute hypoxemic respiratory failure. 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 Impella was placed. He was admitted to the intensive care unit where he is seen today in consultation. He remains intubated on the mechanical ventilator. Currently on assist control mode with a rate of 22, tidal volume 500, FiO2 60% and a PEEP of 5. Morning blood gases revealed a PaO2 of 373, P CO2 of 38 and a pH of 7.33. This was on 90% FiO2 and subsequently decreased to 40% FiO2. He is sedated on propofol at 45 mcg/kg/m. Heparin drip per weight- based protocol. Aggrastat at 0.15 mcg/kg/m. He is on norepinephrine at 12 mcg/m. Normal saline at 75 ML's per hour. White count 27.5. Hemoglobin 14.3. Platelets 373. Fibrinogen 532. Sodium 135. Potassium 5.4. Chloride 108. Bicarb 19. BUN 20. Creatinine 1.21. Glucose 210. TSH 0.601. Cortisol level XXII. A ST to 11. ALT 73. Troponin 5.44. ProBNP 1150. He's been initiated on Lasix 40 mg IV every 12 hours. Brilinta, aspirin, statins. Chest x-ray reveals multifocal airspace opacities, pulmonary vascular congestion. Echoca rdiogram pending. The patient is seen today 08/20/2021 in follow-up in the intensive care unit. H e remains intubated on a mechanical ventilator with current settings of assist control mode with a rate of 22, tidal volume 450, FiO2 40% and a PEEP of 5. Morning blood gases revealed a PaO2 of 87, pCO2 40 and a pH of 7.46. Chest x- ray revealed continued evidence of pulmonary edema with some basilar effusion and associated atelectasis. White count 17.3. Hemoglobin 11.5. Platelets 231. Sodium 138. Potassium 4.0. BUN 21. Creatinine 1.10. Glucose 129. He is sedated with propofol at 20 mcg/kg/m. Off pressors. Remains on IV Lasix at 40 mg every 12 hours. Currently in a -477 mL balance. Anticoagulated with Eliquis. Aggrastat and heparin drips were discontinued yesterday as the patient did have oozing at his puncture sites and blood-tinged urine. He did undergo follow-up cardiac catheterization yesterday and removal of the Impella from the left ventricle. Noted patent stents in the left circumflex and resolving of large thrombus. Patent stents in the mid LAD with thrombus burden involving the diagonal but not the LAD itself. He is continued on Brilinta and aspirin. The patient is seen today 08/21/2021 follow-up in the intensive care unit. He is doing very well. He was successfully extubated yesterday. He is currently sitting up in a chair at the bedside. Maintaining O2 saturations in the 90s on room air. He denies any worsening shortness of breath, cough or congestion. He denies any chest pain or palpitations. Sputum culture revealed no growth. White count 17.1. Hemoglobin 11.0. Platelet count 246. Sodium 138. Potassium 3.8. Bicarb 31. BUN 23. Creatinine 1.15. Glucose 132. Yesterday he did have ongoing issues with hematuria. His Bowling catheter was changed out. His urine is clear today. He is diuresing well. Currently in a -2.3 L balance. He remains on Lasix 40 mg IV every 12 hours. He is anticoagulated with Eliquis. He is continued on aspirin, statins and Brilinta. 08/22/2021, the patient has no specific complaints. The patient is sitting up on a chair, comfortable. No chest pain. No shortness of breath. No headaches. No cardiac arrhythmias. No focal neurological deficit. Remains on IV Lasix. Producing adequate amount of urine output. The patient is on room air oxygen. No other significant events overnight. No bleeding complications. Objective - Vital Signs Vital signs: Vital Signs Temp 98.2 F 08/22/21 12:00 Pulse 79 08/22/21 12:00 Resp 18 08/22/21 12:00 BP 122/72 08/22/21 12:00 Pulse Ox 96 08/22/21 12:00 Intake & Output 08/21/21 08/22/21 08/22/21 18:59 06:59 18:59 Intake Total 410 120 Output Total 2695 1850 Balance -2285 -1850 120 Weight 127 kg Intake: IV 40 Sodium Chloride 0.9% 1, 20 000 ml @ 20 mls/hr IV . Q24H JESSY Rx#:[id number] Sodium Chloride 0.9% 1, 20 000 ml @ 75 mls/hr IV . [id number] JESSY Rx#:[id number] Oral 370 120 Output: Urine 2695 1850 Other: Voiding Method Indwelling Catheter Indwelling Catheter Toilet # Bowel Movements 1 ABP, PAP, CO, CI - Last Documented Arterial Blood Pressure 107/61 - Exam GENERAL EXAM: Awake, alert and oriented 60-year-old obese male patient, sitting up in a chair at the bedside. On room air. HEAD: Normocephalic. EYES: Normal reaction of pupils, equal size. NOSE: Clear with pink turbinates. THROAT: Oral endotracheal and gastric tube secured in place No erythema or exudates. NECK: No masses, no JVD. CHEST: No chest wall deformity. Left IJ triple-lumen catheter in place. LUNGS: Equal air entry with bilateral coarse crackles. CVS: S1 and S2 normal with no audible murmur, regular rhythm. ABDOMEN: No hepatosplenomegaly, normal bowel sounds, no guarding or rigidity. SPINE: No scoliosis or deformity SKIN: No rashes CENTRAL NERVOUS SYSTEM: No focal deficits, tone is normal in all 4 extremities. EXTREMITIES: Impella has been removed. There is no peripheral edema. No clubbing, no cyanosis. Peripheral pulses are intact. - Labs CBC & Chem 7: 08/22/21 10:03 08/22/21 10:03 Labs: Abnormal Lab Results - Last 24 Hours (Table) 08/22/21 08/22/21 08/22/21 Range/Units 00:05 05:50 10:03 WBC 17.5 H (3.8-10.6) k/uL RBC 4.17 L (4.30-5.90) m/uL Hgb 12.3 L (13.0-17.5) gm/dL Hct 38.3 L (39.0-53.0) % Neutrophils # 14.3 H (1.3-7.7) k/uL Sodium (137-145) mmol/L Chloride (98-107) mmol/L BUN (9-20) mg/dL Glucose (74-99) mg/dL POC Glucose (mg/dL) 136 H 134 H (75-99) mg/dL 08/22/21 08/22/21 Range/Units 10:03 11:48 WBC (3.8-10.6) k/uL RBC (4.30-5.90) m/uL Hgb (13.0-17.5) gm/dL Hct (39.0-53.0) % Neutrophils # (1.3-7.7) k/uL Sodium 134 L (137-145) mmol/L Chloride 96 L (98-107) mmol/L BUN 23 H (9-20) mg/dL Glucose 165 H (74-99) mg/dL POC Glucose (mg/dL) 135 H (75-99) mg/dL Assessment and Plan Plan: Acute ST segment elevation myocardial infarction secondary to coronary artery disease, stents placed to the mid LAD, OM1 2. Aspiration thrombectomy the OM1. Placement and removal of Impella device and the patient survives and the patient is hemodynamically stable on room air oxygen free of any chest pain. Repeat cardiac catheterization showed patent coronaries. Acute hypoxemic respiratory failure secondary to above and acute pulmonary edema requiring intubation mechanical ventilatory support, recovered and the patient is currently on room air oxygen, started on IV Lasix acute cardiogenic shock secondary to above, recovered Hypotension secondary to above , recovered Symptoms of heartburn 1 week prior, plan was for outpatient stress test Morbid obesity History of hypertension Hyperlipidemia Diabetes mellitus Plan: Patient is currently on room air oxygen No active pulmonary issues. From the pulmonary standpoint, the patient can be discharged home and the patient will be released home on a combination of aspirin, Brilinta and the patient will also require local medical correlation with Gina per cardiology. The patient will be placed on metoprolol 25 mg by mouth daily. No need for diuretics. His mobility as tolerated. Follow-up with cardiology. Pulmonary critical care services we'll sign off.
--- NOTE | 2021-08-22 19:07 | P.GSCN ---
History of Present Illness Consult date: 08/22/21 History of present illness: This is 60-year-old male admitted to the hospital with myocardial infarction. Urology discussed gross hematuria. He had a Bowling catheter inserted during his hospital admission. Bowling catheter was removed yesterday and he has been able to void since the catheter came out. But has noticed gross hematuria. He was started on Brillinta given his recent Cardiac stenting. Denies any previous history of gross hematuria. Denies any voiding symptoms at baseline. No family history of malignancy. He is a former smoker. Review of Systems - Constitutional Denies fever, Denies weight loss - EENT Ears, nose, mouth and throat: Denies dysphagia - Cardiovascular Denies chest pain, Denies shortness of breath - Respiratory Denies cough, Denies 7 - Genitourinary Reports hematuria Past Medical History Past Medical History: Diabetes Mellitus, Hyperlipidemia, Hypertension History of Any Multi-Drug Resistant Organisms: None Reported Past Surgical History: No Surgical Hx Reported Past Psychological History: No Psychological Hx Reported Smoking Status: Former smoker Past Alcohol Use History: Occasional Past Drug Use History: None Reported Medications and Allergies Home Medications Medication Instructions Recorded Confirmed Type Aspirin EC [Ecotrin Low Dose] 81 mg PO DAILY 08/18/21 08/18/21 History Multivit-Min/Folic/Vit K/Lycop 1 tab PO DAILY 08/18/21 08/18/21 History [Men's Multivitamin Tablet] Omeprazole 40 mg PO DAILY 08/18/21 08/18/21 History Turmeric Root Extract [Turmeric] 500 mg PO DAILY 08/18/21 08/18/21 History allopurinoL [Zyloprim] 300 mg PO DAILY 08/18/21 08/18/21 History metFORMIN HCL [Glucophage] 850 mg PO DAILY 08/18/21 08/18/21 History Apixaban [Eliquis] 2.5 mg PO BID #60 tablet 08/22/21 Rx Atorvastatin [Lipitor] 80 mg PO HS #30 tab 08/22/21 Rx Losartan [Cozaar] 25 mg PO DAILY #30 tab 08/22/21 Rx Metoprolol Succinate (ER) [Toprol 25 mg PO DAILY #30 tab 08/22/21 Rx XL] Nitroglycerin Sl Tabs [Nitrostat] 0.4 mg SUBLINGUAL Q5M PRN #7 tab 08/22/21 Rx Ticagrelor [Brilinta] 90 mg PO BID #60 tab 08/22/21 Rx Allergies Allergy/AdvReac Type Severity Reaction Status Date / Time No Known Allergies Allergy Verified 08/18/21 02:32 Surgical - Exam Vital Signs Temp Pulse Resp BP Pulse Ox 98.3 F 150 H 40 H 186/105 86 L 08/18/21 02:32 08/18/21 02:32 08/18/21 02:32 08/18/21 02:32 08/18/21 02:32 - General no distress, no pain - Eyes normal ocular movement - ENT normal nares, normal mucosa - Respiratory normal expansion, normal respiratory effort - Abdomen Abdomen: soft, non tender - Psychiatric oriented to time, oriented to person, oriented to place Results - Labs 08/22/21 10:03 08/22/21 10:03 Abnormal Lab Results - Last 24 Hours (Table) 08/22/21 08/22/21 08/22/21 Range/Units 00:05 05:50 10:03 WBC 17.5 H (3.8-10.6) k/uL RBC 4.17 L (4.30-5.90) m/uL Hgb 12.3 L (13.0-17.5) gm/dL Hct 38.3 L (39.0-53.0) % Neutrophils # 14.3 H (1.3-7.7) k/uL Sodium (137-145) mmol/L Chloride (98-107) mmol/L BUN (9-20) mg/dL Glucose (74-99) mg/dL POC Glucose (mg/dL) 136 H 134 H (75-99) mg/dL 08/22/21 08/22/21 Range/Units 10:03 11:48 WBC (3.8-10.6) k/uL RBC (4.30-5.90) m/uL Hgb (13.0-17.5) gm/dL Hct (39.0-53.0) % Neutrophils # (1.3-7.7) k/uL Sodium 134 L (137-145) mmol/L Chloride 96 L (98-107) mmol/L BUN 23 H (9-20) mg/dL Glucose 165 H (74-99) mg/dL POC Glucose (mg/dL) 135 H (75-99) mg/dL Diabetes panel 08/22/21 Range/Units 10:03 Sodium 134 L (137-145) mmol/L Potassium 3.6 (3.5-5.1) mmol/L Chloride 96 L (98-107) mmol/L Carbon Dioxide 28 (22-30) mmol/L BUN 23 H (9-20) mg/dL Creatinine 1.03 (0.66-1.25) mg/dL Glucose 165 H (74-99) mg/dL Calcium 9.1 (8.4-10.2) mg/dL Calcium panel 08/22/21 Range/Units 10:03 Calcium 9.1 (8.4-10.2) mg/dL Pituitary panel 08/22/21 Range/Units 10:03 Sodium 134 L (137-145) mmol/L Potassium 3.6 (3.5-5.1) mmol/L Chloride 96 L (98-107) mmol/L Carbon Dioxide 28 (22-30) mmol/L BUN 23 H (9-20) mg/dL Creatinine 1.03 (0.66-1.25) mg/dL Glucose 165 H (74-99) mg/dL Calcium 9.1 (8.4-10.2) mg/dL Adrenal panel 08/22/21 Range/Units 10:03 Sodium 134 L (137-145) mmol/L Potassium 3.6 (3.5-5.1) mmol/L Chloride 96 L (98-107) mmol/L Carbon Dioxide 28 (22-30) mmol/L BUN 23 H (9-20) mg/dL Creatinine 1.03 (0.66-1.25) mg/dL Glucose 165 H (74-99) mg/dL Calcium 9.1 (8.4-10.2) mg/dL Assessment and Plan Assessment: 60-year-old male with history of gross hematuria. No voiding issues at baseline, he is a former smoker. Able to void without any difficulty is at this time. He is on Brillinta for recent cardiac stenting. -Okay for discharge from your standpoint, discussed with him we will need outpatient cystoscopy and upper tract imaging.
--- NOTE | 2021-08-22 22:38 | P.DS ---
Providers Date of admission: 08/18/21 03:45 Expected date of discharge: 08/22/21 Attending physician: Lamont Kelley MD Consults: 08/18/21 05:41 Consult Physician Routine Consulting Provider: Robin Delgado Consult Reason/Comments: Post Interventional patient Do you want consulting provider notified?: Already Contacted 08/18/21 06:10 Consult Physician Routine Consulting Provider: Geovanny Szymanski Consult Reason/Comments: STEMI/ Pt is intubated Do you want consulting provider notified?: Already Contacted 08/20/21 19:35 Consult Physician Routine Consulting Provider: Osbaldo Ashby Consult Reason/Comments: hematuria Do you want consulting provider notified?: Yes, Notify in am [facility] Course: Discharge Diagnosis: ST segment elevated myocardial infarction that his post-PCI and aspiration thrombectomy Cardiogenic shock Acute hypoxic respiratory failure Ischemic cardiomyopathy with ejection fraction of 40% Acute exacerbation of systolic congestive heart failure Diabetes mellitus type 2 with A1c 7 Persistent leukocytosis-likely secondary to stress Hypertension Dyslipidemia Obesity with BMI 38 Hospital Course: Patient is a 60-year-old male with a history of diabetes, hypertension, and dyslipidemia who presented to the ER with complaints of chest pain. In the ER he was found have an ST segment elevated myocardial infarction. Cardiology recommended at bedside and patient was in severe respiratory distress. He was urgently intubated. 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 He had a stent placed to the left circumflex and LAD, however he continued to have some low flow in the left circumflex and therefore a aspiration thrombectomy was performed due to large clot burden. He did require insertion of an impella for cardiogenic shock. He was started on aspirin, Brillenta. And statin. Echocardiogram showed an ejection fraction of 40%. He required a heparin drip, nitro, norepinephrine, propofol, and aggrastat He did require diuresis during his hospital stay. He continued to improve and his cardiogenic shock resolved. He returned to the cathode builder on 08/19 and had his patella removed as well as selective right and left coronary angiogram. He was started on a liquid secondary to large clot burden. He was able to be started on metoprolol and Cozaar. He was successfully extubated on 08/20. He did have an episode of hematuria during his hospital stay in urology was consulted. They recommended outpatient cystoscopy.He continued to progress well and was ultimately determined stable for discharge home. Follow-up: in 1 week, Dr. Galindo in 1-2 days, in one month. Take all medications as prescribed. Daily weights, strict I's and O's. Patient seen and examined at bedside. Doing well. No recurrent chest pain or shortness of breath. Wanting to go home. We discussed the importance of taking all medications as prescribed having adequate cardiology follow-up. Vital signs reviewed and stable. General: non toxic, no distress, appears at stated age Derm: warm, dry Head: atraumatic, normocephalic, symmetric Eyes: EOMI, no lid lag, anicteric sclera Mouth: no lip lesion, mucus membranes moist Cardiovascular: S1S2 reg, no murmur, positive posterior tibial pulse bilateral, Lungs: CTA bilateral, no rhonchi, no rales , no accessory muscle use Abdominal: soft, nontender to palpation, no guarding, no appreciable organomegaly Ext: no gross muscle atrophy, no edema, no contractures Neuro: CN II-XI grossly intact, no focal neuro deficits Psych: Alert, oriented, appropriate affect A total of 45 minutes of time were spent preparing this complex discharge summary . Plan - Discharge Summary Discharge Rx Participant: No New Discharge Prescriptions: New Apixaban [Eliquis] 2.5 mg PO BID #60 tablet Nitroglycerin Sl Tabs [Nitrostat] 0.4 mg SUBLINGUAL Q5M PRN #7 tab PRN Reason: Chest Pain Metoprolol Succinate (ER) [Toprol XL] 25 mg PO DAILY #30 tab Ticagrelor [Brilinta] 90 mg PO BID #60 tab Losartan [Cozaar] 25 mg PO DAILY #30 tab Atorvastatin [Lipitor] 80 mg PO HS #30 tab Continue Omeprazole 40 mg PO DAILY Aspirin EC [Ecotrin Low Dose] 81 mg PO DAILY Turmeric Root Extract [Turmeric] 500 mg PO DAILY Multivit-Min/Folic/Vit K/Lycop [Men's Multivitamin Tablet] 1 tab PO DAILY metFORMIN HCL [Glucophage] 850 mg PO DAILY allopurinoL [Zyloprim] 300 mg PO DAILY Discontinued Losartan Potassium 100 mg PO DAILY Verapamil HCl [Verapamil ER] 240 mg PO DAILY Discharge Medication List Aspirin EC [Ecotrin Low Dose] 81 mg PO DAILY 08/18/21 [History] Multivit-Min/Folic/Vit K/Lycop [Men's Multivitamin Tablet] 1 tab PO DAILY 08/18/21 [History] Omeprazole 40 mg PO DAILY 08/18/21 [History] Turmeric Root Extract [Turmeric] 500 mg PO DAILY 08/18/21 [History] allopurinoL [Zyloprim] 300 mg PO DAILY 08/18/21 [History] metFORMIN HCL [Glucophage] 850 mg PO DAILY 08/18/21 [History] Apixaban [Eliquis] 2.5 mg PO BID #60 tablet 08/22/21 [Rx] Atorvastatin [Lipitor] 80 mg PO HS #30 tab 08/22/21 [Rx] Losartan [Cozaar] 25 mg PO DAILY #30 tab 08/22/21 [Rx] Metoprolol Succinate (ER) [Toprol XL] 25 mg PO DAILY #30 tab 08/22/21 [Rx] Nitroglycerin Sl Tabs [Nitrostat] 0.4 mg SUBLINGUAL Q5M PRN #7 tab 08/22/21 [Rx] Ticagrelor [Brilinta] 90 mg PO BID #60 tab 08/22/21 [Rx] Follow up Appointment(s)/Referral(s): Garrison Rider MD [STAFF PHYSICIAN] - 1 Week (Office will call patient with appt) Nba Scruggs MD [STAFF PHYSICIAN] - 1 Week Aries Galindo DO [Primary Care Provider] - 1-2 days (Appt 08/26 9:20 am in [place]) Patient Instructions/Handouts: Heart Attack (DC), Heart Failure (DC), Coronary Angioplasty (DC) Activity/Diet/Wound Care/Special Instructions: Activity: as tolerated Diet: heart healthy, carb consistent Special Instructions: Take all medications as prescribed Monitor blood pressure once daily and heart rate Seek medical care if chest pain, shortness of breath Thank you for allowing us to care for you, we wish you well on your journey to better health. Discharge Disposition: HOME SELF-CARE
--- NOTE | 2021-08-27 07:53 | CDI ---
Documentation Clarification Form Date: 08/27/21 From: Araceli Alaniz Admit Date: 08/18/2021 03:45:00 AM Patient Name: José Norton Visit Number: [id number] Discharge Date: 08/22/2021 01:45:00 PM ATTENTION: The Clinical Documentation Specialists (CDI) and [facility] Coding Staff appreciate your assistance in clarifying documentation. Please respond to the clarification below the line at the bottom and electronically sign. The CDI & [facility] Coding staff will review the response and follow-up if needed. Please note: Queries are made part of the Legal Health Record. If you have any questions, please contact the author of this message via ITS. Dr. Blanca Mazariegos, The patient has Type II diabetes, as indicated in H&P, consult, progress notes and discharge summary. POC Glucose: 331, 230, 236, 176, 161, 162, 146, 154, 130, 125, 135, 123, 148, 135, 131, 136, 134, 135 Glucose: 334, 210, 155, 129, 132, 165 A1c: 7.0 Treatment: blood glucose monitoring ACHS, consistent carbohydrate diet, NovoLOG per protocol UNIT SQ ACHS Per [facility] 2016 - query the provider for clarification whether the patient has hyperglycemia or hypoglycemia so that the appropriate code may be reported - uncontrolled diabetes indicates that the patient's blood sugar is not at an acceptable level, because it is either too high or too low. In order to capture the severity of Illness and necessary documentation specificity, please clarify if Type 2 diabetes is: [ ] Hyperglycemia [ ] Other, please specify [ ] Unable to Determine A HgB A1C of 7 indicates that this patient's diabetes is well-controlled on a chronic basis. This is not clinically relevant to her case. DELMER
--- NOTE | 2021-09-03 11:58 | ED ---
Chest Pain HPI - General Chief Complaint: Chest Pain Stated Complaint: STEMI Time Seen by Provider: 08/18/21 02:30 Source: EMS Mode of arrival: EMS Limitations: no limitations - History of Present Illness Initial Comments: Patient is 60-year-old man brought by ambulance of evaluation for chest pain and some associated shortness of breath. The pain started approximately an hour prior to his coming in. Patient had been in bed at onset. EMS was called the did administer aspirin and sublingual nitroglycerin but patient still having some pain. He indicates substernal and left chest. MD Complaint: chest pain Onset/Timin -: hour(s) Onset: during rest Pain Location: substernal Pain Radiation: neck Severity: moderate Quality: aching Consistency: constant Improves With: nothing Worsens With: nothing Anginal Symptoms: dyspnea Treatments Prior to Arrival: aspirin, nitroglycerin - Related Data Home Medications Medication Instructions Recorded Confirmed Aspirin EC [Ecotrin Low Dose] 81 mg PO DAILY 08/18/21 08/18/21 Multivit-Min/Folic/Vit K/Lycop 1 tab PO DAILY 08/18/21 08/18/21 [Men's Multivitamin Tablet] Omeprazole 40 mg PO DAILY 08/18/21 08/18/21 Turmeric Root Extract [Turmeric] 500 mg PO DAILY 08/18/21 08/18/21 allopurinoL [Zyloprim] 300 mg PO DAILY 08/18/21 08/18/21 metFORMIN HCL [Glucophage] 850 mg PO DAILY 08/18/21 08/18/21 Previous Rx's Medication Instructions Recorded Apixaban [Eliquis] 2.5 mg PO BID #60 tablet 08/22/21 Atorvastatin [Lipitor] 80 mg PO HS #30 tab 08/22/21 Losartan [Cozaar] 25 mg PO DAILY #30 tab 08/22/21 Metoprolol Succinate (ER) [Toprol 25 mg PO DAILY #30 tab 08/22/21 XL] Nitroglycerin Sl Tabs [Nitrostat] 0.4 mg SUBLINGUAL Q5M PRN #7 tab 08/22/21 Ticagrelor [Brilinta] 90 mg PO BID #60 tab 08/22/21 Allergies Allergy/AdvReac Type Severity Reaction Status Date / Time No Known Allergies Allergy Verified 08/18/21 02:32 Review of Systems ROS Statement: Those systems with pertinent positive or pertinent negative responses have been documented in the HPI. ROS Other: All systems not noted in ROS Statement are negative. Constitutional: Denies: fever, chills Respiratory: Reports: dyspnea. Denies: cough Cardiovascular: Reports: chest pain. Denies: palpitations, orthopnea, edema, syncope Gastrointestinal: Denies: abdominal pain, nausea, vomiting, diarrhea Genitourinary: Denies: dysuria, hematuria Musculoskeletal: Denies: back pain Skin: Denies: rash Neurological: Denies: headache, weakness, numbness EKG Findings - EKG Results: EKG: interpreted by ERMD, sinus rhythm, normal axis EKG shows: tachycardia - RI, Pacemaker, Normal: Myocardial infarction: inferior RI (acute or recent) Past Medical History Past Medical History: Diabetes Mellitus, Hyperlipidemia, Hypertension History of Any Multi-Drug Resistant Organisms: None Reported Past Surgical History: No Surgical Hx Reported Past Psychological History: No Psychological Hx Reported Smoking Status: Former smoker Past Alcohol Use History: Occasional Past Drug Use History: None Reported General Exam Limitations: no limitations General appearance: alert, in distress Head exam: Present: atraumatic, normocephalic Eye exam: Present: normal appearance. Absent: scleral icterus, conjunctival injection Neck exam: Present: normal inspection, full ROM Respiratory exam: Present: respiratory distress. Absent: wheezes, rales, rhonchi, stridor, accessory muscle use Cardiovascular Exam: Present: normal rhythm, tachycardia, normal heart sounds. Absent: systolic murmur, diastolic murmur, rubs, gallop GI/Abdominal exam: Present: soft. Absent: distended, tenderness, guarding, rebound, rigid, mass Extremities exam: Present: normal inspection, normal capillary refill. Absent: pedal edema, calf tenderness Back exam: Present: normal inspection. Absent: CVA tenderness (R), CVA tenderness (L) Neurological exam: Present: alert Skin exam: Present: warm, dry, intact, normal color. Absent: rash Course Vital Signs 08/18/21 08/18/21 08/18/21 02:32 02:40 02:48 Temperature 98.3 F Pulse Rate 150 H 130 H 129 H Respiratory 40 H 26 H 26 H Rate Blood Pressure 186/105 161/96 140/83 O2 Sat by Pulse 86 L 96 97 Oximetry 08/18/21 08/18/21 08/18/21 02:50 02:58 03:04 Temperature Pulse Rate 113 H 109 H Respiratory 42 H 26 H 24 Rate Blood Pressure 121/59 114/61 O2 Sat by Pulse 97 97 Oximetry 08/18/21 03:09 Temperature Pulse Rate 116 H Respiratory 18 Rate Blood Pressure 121/61 O2 Sat by Pulse 98 Oximetry Procedures - [place] Protocol (Time Out) Procedure Performed:: CENTRAL LINE PLACEMENT Performing Provider: Geovanny Szymanski Nurse: Pearl Guadalupe Patient Identification (2 identifiers required): Chart, Arm Band, Name, Birthdate Patient/Legal Personnel Placement Specialist has Confirmed: Identity, Procedure, Consent Site Marked: No Chest Pain MDM - MDM This patient is a 60-year-old man arrived by ambulance for chest pain and dyspnea. The patient's 12-lead ECG does appear to show inferior ST elevations consistent with acute STEMI. The instructional design consultant is paged, the lab nurse was activated. Critical Care Time Critical Care Time: Yes (35 minutes) Disposition Clinical Impression: STEMI (ST elevation myocardial infarction) Disposition: ADMITTED IP TO THIS HOSP Condition: Critical Is patient prescribed a controlled substance at d/c from ED?: No
== END 2021-08-22 13:45 | disposition home or self-care (01) | DRG 215 ==
LOC: EC 02:25 → 2SICU 03:45 → 3SCARD 08-21 18:22
PROVIDERS: ADMIT Internal Medicine; ATTEND Internal Medicine
PROC: 0BH17EZ Insertion of Endotracheal Airway into Trachea, Via Natural or Artificial Opening (ICD-10-PCS; 2021-08-18)
PROC: 5A09357 Assistance with Respiratory Ventilation, Less than 24 Consecutive Hours, Continuous Positive Airway Pressure (ICD-10-PCS; 2021-08-18)
PROC: 5A0221D Assistance with Cardiac Output using Impeller Pump, Continuous (ICD-10-PCS; principal; 2021-08-18 03:00)
PROC: 4A023N7 Measurement of Cardiac Sampling and Pressure, Left Heart, Percutaneous Approach (ICD-10-PCS; principal; 2021-08-18 03:00)
PROC: 02C Heart and Great Vessels, Extirpation (ICD-10-PCS; principal; 2021-08-18 03:00)
PROC: 027136Z Dilation of Coronary Artery, Two Arteries with Three Drug-eluting Intraluminal Devices, Percutaneous Approach (ICD-10-PCS; principal; 2021-08-18 03:00)
PROC: 02C03ZZ Extirpation of Matter from Coronary Artery, One Artery, Percutaneous Approach (ICD-10-PCS; principal; 2021-08-18 03:00)
PROC: 3E033XZ Introduction of Vasopressor into Peripheral Vein, Percutaneous Approach (ICD-10-PCS; principal; 2021-08-18 03:00)
PROC: 3E033PZ Introduction of Platelet Inhibitor into Peripheral Vein, Percutaneous Approach (ICD-10-PCS; principal; 2021-08-18 03:00)
PROC: B2111ZZ Fluoroscopy of Multiple Coronary Arteries using Low Osmolar Contrast (ICD-10-PCS; principal; 2021-08-18 03:00)
PROC: B41G1ZZ Fluoroscopy of Left Lower Extremity Arteries using Low Osmolar Contrast (ICD-10-PCS; principal; 2021-08-18 03:00)
PROC: 02HA3RZ Insertion of Short-term External Heart Assist System into Heart, Percutaneous Approach (ICD-10-PCS; principal; 2021-08-18 03:00)
PROC: 0D9670Z Drainage of Stomach with Drainage Device, Via Natural or Artificial Opening (ICD-10-PCS; 2021-08-18 03:00)
PROC: 02HV33Z Insertion of Infusion Device into Superior Vena Cava, Percutaneous Approach (ICD-10-PCS; 2021-08-18 03:00)
PROC: 5A1945Z Respiratory Ventilation, 24-96 Consecutive Hours (ICD-10-PCS; 2021-08-18 03:00)
PROC: B2111ZZ Fluoroscopy of Multiple Coronary Arteries using Low Osmolar Contrast (ICD-10-PCS; 2021-08-19 14:15)
PROC: 02PA3RZ Removal of Short-term External Heart Assist System from Heart, Percutaneous Approach (ICD-10-PCS; 2021-08-19 14:15)
DX: I21.11 ST elevation (STEMI) myocardial infarction involving right coronary artery (principal); J96.01 Acute respiratory failure with hypoxia; R57.0 Cardiogenic shock; I50.23 Acute on chronic systolic (congestive) heart failure; E87.2 Acidosis; E87.1 Hypo-osmolality and hyponatremia; J98.11 Atelectasis; E11.9 Type 2 diabetes mellitus without complications; D72.829 Elevated white blood cell count, unspecified; I21.09 ST elevation (STEMI) myocardial infarction involving other coronary artery of anterior wall; I11.0 Hypertensive heart disease with heart failure; Z68.39 Body mass index [BMI] 39.0-39.9, adult; E66.01 Morbid (severe) obesity due to excess calories; I25.5 Ischemic cardiomyopathy; I25.10 Atherosclerotic heart disease of native coronary artery without angina pectoris; E78.00 Pure hypercholesterolemia, unspecified; R31.0 Gross hematuria; E78.5 Hyperlipidemia, unspecified; Z79.82 Long term (current) use of aspirin; Z79.84 Long term (current) use of oral hypoglycemic drugs; Z79.899 Other long term (current) drug therapy; Z87.891 Personal history of nicotine dependence; Z71.3 Dietary counseling and surveillance
CPT/HCPCS: 31500; 36415; 71045; 80048; 80053; 82533; 82805; 83036; 83605; 83615; 83735; 83880; 84443; 84484; 85025; 85027; 85384; 85610; 85730; 87070; 87205; 93005; 93306; 93454; 93458; 94002; 94003; 94660; 96365; 96375; 99285